=== PATIENT | female | born 1940 | race Caucasian/White ===

== ENCOUNTER 2017-10-11 19:03 | Inpatient (IN) ==
--- NOTE | 2017-10-11 19:14 | Emergency Department Note ---
Disposition Clinical Impression: Atypical pneumonia Disposition: Admitted As Inpatient Condition: Good Referrals: Evans More III, DO [Emergency Provider] - Time of Disposition: 21:12 General Adult HPI - General Stated complaint: sick weakness fever Time Seen by Provider: 10/11/17 19:14 Source: patient Mode of arrival: private vehicle Limitations: no limitations Nursing Notes Reviewed: Yes Vital Signs Reviewed: Yes - History of Present Illness HPI Narrative: 77-year-old white female presents emergency department via private vehicle accompanied with her son. She complains of cough and shortness of breath that is increased over the past 3 days. She was noted to have a fever last night with her cough and congestion. Her son relates that she had TheraFlu and this took care of the fever. Her fever was present again today and just prior to arrival he said it was 101. She has had a productive cough of yellow sputum. She has had pneumonia in the past, but not recently. She has had no other medicines prior to arrival. She says that she wears oxygen on occasion at home as needed. She has a history of COPD and has been using her oxygen at home today. - Related Data Home Medications Medication Instructions Recorded Confirmed Atenolol [Tenormin] 25 mg PO BID 12/22/14 10/11/17 Calcium Carbonate/Vitamin D3 1 each PO BID 12/22/14 10/11/17 [Calcium 600-Vit D3 800 Tablet] Cevimeline HCl [Evoxac] 30 mg PO TID 12/22/14 10/11/17 Losartan [Cozaar] 50 mg PO DAILY 12/22/14 10/11/17 NIFEdipine XL (24 HR) [Procardia 90 mg PO DAILY 12/22/14 10/11/17 XL] TraMADol [Ultram] 150 mg PO Q6HR PRN 12/22/14 10/11/17 predniSONE [Prednisone] 7.5 mg PO DAILY 12/22/14 10/11/17 Iron Ps Complex/B12/Folic Acid 1 each PO BID 06/30/16 10/11/17 [Iferex 150 Forte Capsule] Omeprazole [PriLOSEC] 20 mg PO DAILY 10/11/17 10/11/17 Allergies Allergy/AdvReac Type Severity Reaction Status Date / Time No Known Allergies Allergy Verified 06/30/16 16:44 All systems ED: reviewed and negative except as stated. Constitutional: Reports: as per HPI, fever Eyes: Denies: eye pain, eye discharge, vision change ENT ED: Reports: as per HPI Cardiovascular: Denies: chest pain, palpitations, dyspnea on exertion, edema, syncope Respiratory: Reports: as per HPI, cough, dyspnea, sputum production. Denies: wheezes Gastrointestinal: Denies: abdominal pain, nausea, vomiting, diarrhea, constipation, hematemesis, melena, hematochezia Genitourinary: Denies: dysuria, frequency, hematuria, discharge Musculoskeletal: Denies: back pain, neck pain, arthralgia, myalgia Integumentary: Denies: rash, abrasion, lesions Neurological: Denies: headache, weakness, numbness, paresthesias, confusion, abnormal gait, vertigo Psychiatric: Denies: anxiety, depression, suicidal thoughts, homicidal thoughts , auditory hallucinations, visual hallucinations Endocrine: Denies: fatigue Hematological/Lymphatic: Denies: easy bleeding, easy bruising Allergic/Immunologic: Denies: facial swelling, urticaria Past Medical History - Past Medical History Medical history: Reports: COPD, GERD, hypertension, osteoporosis, other Surgical history: Reports: hysterectomy Psychiatric history: Reports: no psych history [employer] history: Reports: non-contributory - Social History Smoking Status: Never smoker Smokeless Tobacco Status: No Alcohol use: Reports: none Drug use: Reports: none Physical Exam - General Limitations: no limitations General appearance: alert, in no apparent distress - Head Head exam: atraumatic, normocephalic, normal inspection - Eye Eye exam: Present: normal appearance, PERRL, EOMI - ENT ENT exam: normal exam, normal oropharynx, mucous membranes moist - Neck Neck exam: Present: normal inspection, full ROM, trachea midline. Absent: meningismus - Chest Chest inspection: Present: normal inspection, symmetric chest wall rise. Absent : tenderness - Respiratory Respiratory exam: Present: other (Breath sounds are decreased, but equal bilaterally. Diffuse rhonchi throughout). Absent: respiratory distress - Cardiovascular Cardiovascular exam: Present: regular rate, normal rhythm, normal heart sounds - Abdominal Exam Abdominal exam: Present: soft, Non-Tender. Absent: tenderness, distention, guarding, rebound, rigidity, organomegaly - Extremities Exam Extremities exam: Present: normal inspection, full ROM. Absent: tenderness, pedal edema - Back Exam Back exam: Present: normal inspection, full ROM. Absent: tenderness - Neurological Exam Neurological exam: Present: alert, oriented X3, CN II-XII intact. Absent: motor sensory deficit - Psychiatric Psychiatric exam: Present: normal affect, normal mood - Skin Skin exam: Present: warm, dry, intact, normal color Course Course Narrative: The patient remained stable throughout her emergency department stay without further complaint. Spoke with Dr. Negro at 2105 and the patient will be admitted to the hospital here in [place]. Vital Signs Temperature 100.3 F H 10/11/17 19:20 Pulse Rate 94 10/11/17 19:20 Respiratory Rate 18 10/11/17 19:20 Blood Pressure 123/63 10/11/17 19:20 O2 Sat by Pulse Oximetry 93 10/11/17 19:20 Temperature 100.3 F H 10/11/17 19:20 Pulse Rate 94 10/11/17 19:20 Respiratory Rate 18 10/11/17 19:20 Blood Pressure 123/63 10/11/17 19:20 O2 Sat by Pulse Oximetry 93 10/11/17 19:20 Oxygen Delivery Oxygen Delivery Nasal Cannula Medical Decision Making - Lab Data Lab results reviewed: Yes I reviewed the patient's lab results. Result diagrams: 10/11/17 20:25 10/11/17 20:25 Lab Results 10/11/17 10/11/17 10/11/17 Range/Units 20:25 20:25 20:25 WBC 14.7 H (4.3-11.1) K/mcL RBC 3.55 L (3.82-4.97) M/mcL Hgb 11.5 (11.5-15.4) g/dL Hct 35.2 L (35.3-44.9) % MCV 99.2 (83.0-100.0) fL MCH 32.4 (28.0-33.3) pg MCHC 32.7 (31.6-35.5) g/dL RDW 14.1 (11.5-14.5) % Plt Count 271 (140-400) K/mcL MPV 9.7 (9.4-12.4) fL Immature Gran % 0.3 (0-4) % Seg Neutrophils % 85.4 % Lymphocytes % 4.0 % Monocytes % 8.4 % Eosinophils % 1.6 % Basophils % 0.3 % Neutrophils # 12.6 H (1.6-8.9) K/mcL Lymphocytes # 0.6 (0.6-4.6) K/mcL Monocytes # 1.2 (0.0-1.3) K/mcL Eosinophils # 0.2 (0.0-0.6) K/mcL Basophils # 0.0 (0.0-0.2) K/mcL Sodium 129 L (136-145) mEq/L Potassium 4.3 (3.5-5.1) mEq/L Chloride 97 L (98-107) mEq/L Carbon Dioxide 23 (23-29) mEq/L BUN 32 H (8-23) mg/dL Creatinine 1.34 H (0.60-1.20) mg/dL Est GFR ( Amer) 46 L (> 60) Est GFR (Non-Af Amer) 38 L (> 60) BUN/Creatinine Ratio 24 (6-26) Glucose 102 (70-105) mg/dL Calculated Osmolality 275 L (280-300) Lactic Acid 0.7 (0.5-2.2) mmol/L Calcium 9.4 (8.6-10.3) mg/dL Total Bilirubin 0.7 (0.3-1.0) mg/dL AST 14 (13-39) Units/L ALT 10 (7-52) Units/L Alkaline Phosphatase 68 (34-104) Units/L Serum Total Protein 7.4 (6.4-8.9) g/dL Albumin 3.5 (3.5-5.7) g/dL Globulin 3.9 H (2.4-3.5) g/dL Albumin/Globulin Ratio 0.9 L (1.1-2.2) - Radiology Data Radiology results reviewed: Yes I reviewed the patient's radiology results. 2 views of the chest: IMPRESSION: Atypical pneumonia. D/ / Colt Johnson MD / Colt Johnson MD
[2017-10-11] MEDS ORDERED: methylPREDNISolone 125 MG/2 ML VIAL IVP ONE (19:23)
[2017-10-11] MEDS ORDERED: 0.9 % Sodium Chloride 500 ML IVC ONE (19:23)
[2017-10-11] MEDS ORDERED: Ipratropium/Albuterol Neb 3 ML IH ONE (19:23)
[2017-10-11] MEDS ORDERED: Azithromycin 500 MG in D5% in Water 250 ML IVPB ONE (20:00)
[2017-10-11 20:33] LABS: Basophils % 0.3 %; Eosinophils # 0.2 K/mcL (0.0-0.6); Eosinophils % 1.6 %; Hematocrit 35.2 % (35.3-44.9); Hemoglobin 11.5 g/dL (11.5-15.4); Immature Granulocytes % 0.3 % (0-4); Lymphocytes # 0.6 K/mcL (0.6-4.6); Mean Corpuscular HGB Conc 32.7 g/dL (31.6-35.5); Mean Corpuscular Hemoglobin 32.4 pg (28.0-33.3); Mean Corpuscular Volume 99.2 fL (83.0-100.0); Mean Platelet Volume 9.7 fL (9.4-12.4); Monocytes # 1.2 K/mcL (0.0-1.3); Monocytes % 8.4 %; Neutrophils # 12.6 K/mcL (1.6-8.9); Platelet Count 271 K/mcL (140-400); Red Blood Count 3.55 M/mcL (3.82-4.97); Red Cell Distribution Width 14.1 % (11.5-14.5); Segmented Neutrophils % 85.4 %
[2017-10-11] MEDS ORDERED: cefTRIAXone 1,000 MG in Water for inj. (sterile) 20 ML 10 ML IVP ONE (20:37)
[2017-10-11 20:47] LABS: Albumin 3.5 g/dL (3.5-5.7); Albumin/Globulin Ratio 0.9 (1.1-2.2); Bilirubin,Total 0.7 mg/dL (0.3-1.0); Calcium 9.4 mg/dL (8.6-10.3); Globulin 3.9 g/dL (2.4-3.5); Potassium 4.3 mEq/L (3.5-5.1); Total Protein 7.4 g/dL (6.4-8.9)
[2017-10-11] MEDS ORDERED: Naloxone 0.4 MG/ML INJ IVP PRN (22:20)
[2017-10-11] MEDS: 0.9 % Sodium Chloride 1,000 ML IVC SCH (23:04)
[2017-10-12] MEDS: Ipratropium/Albuterol Neb 3 ML IH PRN (00:36)
[2017-10-12 05:55] LABS: Basophils % 0.2 %; Hematocrit 37.3 % (35.3-44.9); Immature Granulocytes % 0.4 % (0-4); Lymphocytes # 0.3 K/mcL (0.6-4.6); Lymphocytes % 2.6 %; Mean Corpuscular HGB Conc 32.2 g/dL (31.6-35.5); Mean Corpuscular Hemoglobin 32.2 pg (28.0-33.3); Mean Platelet Volume 10.1 fL (9.4-12.4); Monocytes # 0.2 K/mcL (0.0-1.3); Monocytes % 2.1 %; Neutrophils # 10.7 K/mcL (1.6-8.9); Platelet Count 247 K/mcL (140-400); Red Blood Count 3.73 M/mcL (3.82-4.97); Red Cell Distribution Width 14.1 % (11.5-14.5); Segmented Neutrophils % 94.7 %
[2017-10-12 06:10] LABS: Albumin 3.4 g/dL (3.5-5.7); Albumin/Globulin Ratio 0.9 (1.1-2.2); Bilirubin,Total 0.3 mg/dL (0.3-1.0); Calcium 8.9 mg/dL (8.6-10.3); Potassium 4.4 mEq/L (3.5-5.1); Total Protein 7.4 g/dL (6.4-8.9)
[2017-10-12] MEDS: (Cevimeline Hcl [Evoxac] 30 MG) PO SCH ×3 (08:45→20:23)
[2017-10-12] MEDS: amLODIPine 5 MG TABLET PO SCH (08:48)
[2017-10-12] MEDS: Azithromycin 500 MG in D5% in Water 250 ML IVPB SCH (08:49)
[2017-10-12] MEDS: Metoprolol 100 MG TABLET PO SCH (08:49)
[2017-10-12] MEDS: cefTRIAXone 1,000 MG in Water for inj. (sterile) 20 ML 10 ML IVP SCH (08:50)
[2017-10-12] MEDS: traMADol 50 MG TABLET PO PRN ×2 (08:56→20:24)
[2017-10-12] MEDS ORDERED: NIFEdipine XL (24 HR) 30 MG TAB.ER.24 PO SCH (09:00)
[2017-10-12] MEDS ORDERED: cefTRIAXone 1,000 MG in Water for inj. (sterile) 20 ML 10 ML IVP SCH (09:00)
[2017-10-12] MEDS ORDERED: predniSONE 5 MG TABLET PO SCH (09:00)
--- NOTE | 2017-10-12 11:02 | Internal Med History&Physical ---
Date of Encounter: 10/12/17 Time of Encounter: 11:00 Assessment and Plan (1) Atypical pneumonia Current visit: Yes Status: Acute Continue azithromycin IV and steroids. Continue inhaled meds and oxygen therapy as needed. White blood cell count improved at 11.3 today. Will repeat labs in the morning. (2) COPD (chronic obstructive pulmonary disease) Current visit: Yes Status: Acute Continue inhaled meds and steroids as ordered. Will monitor. Continue oxygen per nasal cannula to remain sats greater than 92%. Qualifiers: COPD type: unspecified COPD Qualified Code(s): J44.9 - Chronic obstructive pulmonary disease, unspecified (3) Essential hypertension Current visit: Yes Status: Acute Controlled with current medication. Monitor blood pressure. Internal Medicine - H&P: HPI Admitted From: Emergency Dept Plans for Post Hospital Care: Home History of present illness: Ms. Miranda is a 77 year old female admitted to inpatient unit for atypical pneumonia. Presented to the emergency room yesterday with a 3 day history of cough and fever. Has history of pneumonia in the past. Past medical history includes COPD, Gerd, hypertension, osteoporosis. And [id number]. Where is oxygen per nasal cannula occasionally at home at 3 L. Currently complaining of cough and shortness of breath. Denies fever, chills, nausea, vomiting or diarrhea. Denies chest pain. Maintaining O2 sats at 95% with 3 L per nasal cannula. Maintaining appetite and hydration. Bowels moving as normal. Past Med Surg Social Fam HX - Past Medical History Medical history: arthritis, COPD, GERD, hypertension, osteoporosis, other Additional medical history: Sjogren's Syndrome Psychiatric history: no psych history - Past Surgical History Surgical History: hysterectomy - Social History Smoking Status: Never smoker Smokeless Tobacco Status: No Alcohol use: none Drug use: none - Family History Mother Family Member Ethnicity: Non- Living Status: Hx Family Cardiac Disorders: No Hx Family Respiratory Disorders: No Hx Family Cancer: No Hx Family GI Disorders: Yes Hx Family Endocrine Disorder: No Hx Family Neuromuscular Disorders: No Hx Family Neurologic Disorders: No Hx Family HEENT Disorders: No Hx Family Autoimmune Disorders: No Internal Medicine - H&P: Meds Calcium Carbonate/Vitamin D3 [Calcium 600-Vit D3 800 Tablet] 1 each PO BID 12/22 [History] Cevimeline HCl [Evoxac] 30 mg PO TID 12/22/14 [History] Losartan [Cozaar] 50 mg PO DAILY 12/22/14 [History] TraMADol [Ultram] 100 mg PO Q6HR PRN 12/22/14 [History] predniSONE [Prednisone] 7.5 mg PO DAILY 12/22/14 [History] Iron Ps Complex/B12/Folic Acid [Iferex 150 Forte Capsule] 1 each PO BID [History] Metoprolol [Lopressor] 100 mg PO DAILY 10/11/17 [History] Buspirone HCl [Buspar] 7.5 mg PO BID 10/12/17 [History] Ranitidine HCl [Zantac] 300 mg PO DAILY 10/12/17 [History] amLODIPine [Norvasc] 10 mg PO DAILY 10/12/17 [History] 3 Allergy/AdvReac Type Severity Reaction Status Date / Time No Known Allergies Allergy Verified 06/30/16 16:44 All Systems PM: A 10-system review of systems was performed and is negative for pertinent findings except as documented above in the HPI. - Constitutional Constitutional: no chills, no fever(s), no night sweats - EENT Eyes: no change in vision, no discharge, no pain, no photophobia Ears: no ear discharge, no ear pain, no tinnitus Nose, mouth and throat: no dysphagia, no nasal discharge, no neck pain, no sore throat - Cardiovascular Cardiovascular ROS IM: no chest pain, no diaphoresis, no dyspnea, no lightheadedness, no palpitations, no syncope - Respiratory Respiratory: cough, chest congestion, no dyspnea, no wheezing, no excessive phlegm production - Gastrointestinal Gastrointestinal: no abdominal pain, no diarrhea, no hematemesis, no hematochezia, no melena, no nausea, no vomiting - Genitourinary Genitourinary: no change in urinary stream, no dysuria, no flank pain, no hematuria - Musculoskeletal Musculoskeletal ROS IM: no numbness, no tingling - Integumentary Integumentary IM: no rash, no unusual bruising - Neurological Neurological ROS: no confusion, no convulsions, no focal weakness, no numbness, no tingling, no tremor(s) - Hematologic/Lymphatic Hematologic/Lymphatic: no easy bruising - Constitutional Vitals: Temp Pulse Resp BP Pulse Ox 97.5 F L 69 16 110/64 94 10/12/17 07:16 10/12/17 07:16 10/12/17 07:16 10/12/17 07:16 10/12/17 07:16 General appearance: Present: cooperative, A&O X 3, pleasant, no acute distress, answers questions appropriately - Head Head exam: Present: atraumatic, normocephalic - Eye Eye exam: Present: PERRL, conjuntiva pink, sclera anicteric Pupils: Present: PERRL - Neck Neck exam general surgery: Present: supple, trachea midline. Absent: lymphadenopathy - Respiratory Respiratory exam: Present: rales, rhonchi. Absent: accessory muscle use, wheezes Additional comments: Rhonchi and rales scattered throughout. - Cardiovascular Cardiovascular exam: Present: RRR, +S1, +S2. Absent: diastolic murmur, gallop, rubs, systolic murmur - GI/Abdominal GI/Abdominal exam: Present: normal bowel sounds, soft, no peritoneal signs. Absent: distended, tenderness - Extremities Exam Extremities exam: Present: warm, radial pulses palpable and symmetrical. Absent : calf tenderness, cyanotic, pedal edema - Neurological Exam Neurological exam: Present: CN II-XII intact, oriented X3, no focal deficits. Absent: pronater drift, facial droop, speech deficit - Skin Skin exam: Present: dry, intact Internal Med - H&P Results - Labs CBC & Chem 7: 10/12/17 05:15 10/12/17 05:15 Labs: Short CBC 10/12/17 Range/Units 05:15 WBC 11.3 H (4.3-11.1) K/mcL Hgb 12.0 (11.5-15.4) g/dL Hct 37.3 (35.3-44.9) % Plt Count 247 (140-400) K/mcL Neutrophils # 10.7 H (1.6-8.9) K/mcL BMP 10/12/17 05:15 Sodium 132 L Potassium 4.4 Chloride 100 Carbon Dioxide 25 BUN 28 H Creatinine 1.10 Glucose 187 H Calcium 8.9 Liver Function 10/12/17 Range/Units 05:15 Total Bilirubin 0.3 (0.3-1.0) mg/dL AST 14 (13-39) Units/L ALT 10 (7-52) Units/L Alkaline Phosphatase 71 (34-104) Units/L Albumin 3.4 L (3.5-5.7) g/dL
[2017-10-12] MEDS: *HR* Heparin 5,000 UNIT/ML VIAL SQ SCH ×2 (11:55→18:11)
[2017-10-12] MEDS: 0.9 % Sodium Chloride 1,000 ML IVC SCH (14:10)
[2017-10-12] MEDS: methylPREDNISolone 125 MG/2 ML VIAL IVP SCH ×2 (15:29→23:17)
[2017-10-12] MEDS: Ipratropium/Albuterol Neb 3 ML IH SCH ×2 (18:11→21:56)
[2017-10-13] MEDS: Ipratropium/Albuterol Neb 3 ML IH SCH ×4 (03:27→22:00)
[2017-10-13] MEDS: *HR* Heparin 5,000 UNIT/ML VIAL SQ SCH ×2 (05:50→18:07)
[2017-10-13 06:58] LABS: Basophils % 0.2 %; Hematocrit 36.7 % (35.3-44.9); Hemoglobin 12.2 g/dL (11.5-15.4); Immature Granulocytes % 0.6 % (0-4); Lymphocytes # 0.3 K/mcL (0.6-4.6); Lymphocytes % 1.5 %; Mean Corpuscular HGB Conc 33.2 g/dL (31.6-35.5); Mean Corpuscular Hemoglobin 32.3 pg (28.0-33.3); Mean Corpuscular Volume 97.1 fL (83.0-100.0); Mean Platelet Volume 9.7 fL (9.4-12.4); Monocytes # 1.5 K/mcL (0.0-1.3); Monocytes % 7.1 %; Neutrophils # 19.1 K/mcL (1.6-8.9); Platelet Count 368 K/mcL (140-400); Red Blood Count 3.78 M/mcL (3.82-4.97); Red Cell Distribution Width 14.1 % (11.5-14.5); Segmented Neutrophils % 90.6 %
[2017-10-13 07:17] LABS: Anisocytosis 1+ (Not Present); Platelet Estimate Normal (Normal); Poikilocytosis 1+ (Not Present)
[2017-10-13 07:19] LABS: BUN/Creatinine Ratio 22 (6-26); Blood Urea Nitrogen 17 mg/dL (8-23); Calcium 9.1 mg/dL (8.6-10.3); Carbon Dioxide 22 mEq/L (23-29); Chloride 102 mEq/L (98-107); Glucose 223 mg/dL (70-105); Osmolality,Calculated 286 (280-300); Potassium 3.2 mEq/L (3.5-5.1); Sodium 134 mEq/L (136-145); eGFR For Non-African Americans > 60 (> 60)
[2017-10-13] MEDS: amLODIPine 5 MG TABLET PO SCH (08:35)
[2017-10-13] MEDS: Metoprolol 100 MG TABLET PO SCH (08:36)
[2017-10-13] MEDS: cefTRIAXone 1,000 MG in Water for inj. (sterile) 20 ML 10 ML IVP SCH (08:36)
[2017-10-13] MEDS: methylPREDNISolone 125 MG/2 ML VIAL IVP SCH ×2 (08:37→17:26)
[2017-10-13] MEDS: Azithromycin 500 MG in D5% in Water 250 ML IVPB SCH (08:38)
[2017-10-13] MEDS: (Cevimeline Hcl [Evoxac] 30 MG) PO SCH ×3 (08:38→20:11)
[2017-10-13] MEDS: traMADol 50 MG TABLET PO PRN ×2 (08:43→21:59)
[2017-10-13 08:53] LABS: % Iron Saturation 12 % (15-50); Iron 28 mcg/dL (50-170); Transferrin 164 mg/dL (203-362)
--- NOTE | 2017-10-13 12:22 | Internal Med Progress Note ---
Date of Encounter: 10/13/17 Time of Encounter: 12:19 - Assessment and plan (1) Pneumonia Current Visit: Yes Status: Acute Assessment and plan: No acute issues. Continues treatment for her atypical pneumonia. Patient continues to show pulmonary congestion and states that she continues to have a productive cough with yellow-type thick sputum received. Patient currently is afebrile. Continues to have complaints of slight dyspnea during exertion, but does have a history of advanced COPD. We will continue with current antibiotics. Patient currently on cortical steroids. Today's WBC has elevated to 21, but this is also after patient has been started on cortical steroids. We will continue with current plan of care and monitor serial labs. Qualifiers: Pneumonia type: due to unspecified organism Laterality: right Lung location: middle lobe of lung Qualified Code(s): J18.1 - Lobar pneumonia, unspecified organism (2) Hypokalemia Current Visit: Yes Status: Acute Assessment and plan: Today's labs show a potassium low at 3.2. Patient was started on oral potassium 3 times a day. We will repeat labs in the morning to include a magnesium level evaluation. (3) Leukocytosis Current Visit: Yes Status: Acute Assessment and plan: Patient's WBC has elevated to 21, but this also coincides with her starting cortical steroids. Patient has been started on cortical steroids during her treatment of her atypical pneumonia and advanced COPD. We will continue to monitor serial labs. Patient does remain afebrile and appears relaxed with her respiratory effort while at rest. Qualifiers: Leukocytosis type: unspecified Qualified Code(s): D72.829 - Elevated white blood cell count, unspecified (4) Essential hypertension Current Visit: Yes Status: Acute Assessment and plan: Vital signs have been stable. We will continue with current medications. - Time Spent With Patient less than 15 minutes - Subjective Interval history: Patient appears relaxed and currently denies any discomforts or shortness of breath while at rest.. Patient did state she became winded ambulating earlier today. Patient states she continues to have a productive cough with her sputum appearing thick and yellow. Denies any fever or chills. - Constitutional Vitals: Temp Pulse Resp BP Pulse Ox 97.8 F 91 18 123/71 91 10/13/17 11:00 10/13/17 11:00 10/13/17 11:00 10/13/17 11:00 10/13/17 11:00 General appearance: Present: cooperative, A&O X 3, pleasant, no acute distress, answers questions appropriately - Head Head exam: Present: atraumatic, normocephalic - Eye Eye exam: Present: PERRL, conjuntiva pink, sclera anicteric Pupils: Present: PERRL - Neck Neck exam general surgery: Present: supple, trachea midline. Absent: lymphadenopathy - Respiratory Respiratory exam: Present: CTAB. Absent: accessory muscle use, rales, rhonchi, wheezes Additional comments: Patient noted to have a slight expiratory wheeze her to up her feels and fine basilar rales heard posteriorly. Respiratory effort appears relaxed. Patient states productive cough but no sputum has been observed. - Cardiovascular Cardiovascular exam: Present: RRR, +S1, +S2. Absent: diastolic murmur, gallop, rubs, systolic murmur - GI/Abdominal GI/Abdominal exam: Present: normal bowel sounds, soft, no peritoneal signs. Absent: distended, tenderness - Extremities Exam Extremities exam: Present: warm, radial pulses palpable and symmetrical. Absent : calf tenderness, cyanotic, pedal edema - Neurological Exam Neurological exam: Present: CN II-XII intact, oriented X3, no focal deficits. Absent: pronater drift, facial droop, speech deficit - Skin Skin exam: Present: dry, intact Internal Medicine: Result - Labs CBC & Chem 7: 10/13/17 06:55 10/13/17 06:55 Labs: Short CBC 10/13/17 Range/Units 06:55 WBC 21.1 H D (4.3-11.1) K/mcL Hgb 12.2 (11.5-15.4) g/dL Hct 36.7 (35.3-44.9) % Plt Count 368 (140-400) K/mcL Neutrophils # 19.1 H (1.6-8.9) K/mcL BMP 10/13/17 06:55 Sodium 134 L Potassium 3.2 L Chloride 102 Carbon Dioxide 22 L BUN 17 Creatinine 0.79 Glucose 223 H Calcium 9.1 Cardiac Enzymes 10/12/17 10/13/17 10/13/17 Range/Units 19:05 01:10 06:55 Troponin I < 0.03 < 0.03 < 0.03 (< 0.04) ng/mL - Impressions Impressions Echocardiogram 10/12/17 15:04 Impressions: LVEF 65%. Normal LV chamber size, wall thickness and function. Normal right ventricular structure and function. Mild aortic stenosis. Mild mitral regurgitation. Mild-moderate tricuspid regurgitation. At least mild pulmonary hypertension. Left Ventricular Wall Motion: Rest Echo Findings All wall segments showed normal motion. Findings: Study Quality * Technically sub-optimal due to poor echocardiographic windows. * Technical review due to No subcostal window ECG Findings * Sinus tachycardia. Left Ventricle * LVEF 65%. * Normal LV chamber size, wall thickness and function. * Normal left ventricular diastolic function. Right Ventricle * Normal right ventricular structure and function. Left Atrium * Normal left atrial size. Right Atrium * Normal right atrial size. Interatrial Septum * Interatrial septum not well evaluated. Aortic Valve * Moderately calcified aortic valve leaflets. * Mild aortic stenosis. * Peak and mean gradients are 20 12 mmHg, respectively. * V1 96, V2 223, LVOT 1.9 Mitral Valve * Mild mitral annular calcification * Mild mitral regurgitation. Tricuspid Valve * Mild-moderate tricuspid regurgitation. * Estimated RVSP is RV-RA gradient 34 mmHg. * At least mild pulmonary hypertension. Pulmonic Valve * Pulmonic valve is not well visualized. * No pulmonic regurgitation. Aorta * Normally sized aortic root. Pericardium * The pericardium appears normal. IVC * The IVC is not well evaluated. Consult Discharge Plan - Plan Referrals: Burt Vazquez, COAL GETTER [Primary Care Provider] -
[2017-10-14] MEDS: methylPREDNISolone 125 MG/2 ML VIAL IVP SCH ×4 (00:06→23:50)
[2017-10-14] MEDS: *HR* Heparin 5,000 UNIT/ML VIAL SQ SCH ×2 (03:56→18:01)
[2017-10-14] MEDS: Ipratropium/Albuterol Neb 3 ML IH SCH ×4 (03:56→22:03)
[2017-10-14 06:57] LABS: Basophils % 0.1 %; Hemoglobin 11.1 g/dL (11.5-15.4); Lymphocytes # 0.4 K/mcL (0.6-4.6); Lymphocytes % 1.7 %; Mean Corpuscular HGB Conc 32.6 g/dL (31.6-35.5); Mean Corpuscular Hemoglobin 32.1 pg (28.0-33.3); Mean Corpuscular Volume 98.3 fL (83.0-100.0); Monocytes # 1.4 K/mcL (0.0-1.3); Monocytes % 6.9 %; Neutrophils # 18.3 K/mcL (1.6-8.9); Platelet Count 318 K/mcL (140-400); Red Blood Count 3.46 M/mcL (3.82-4.97); Red Cell Distribution Width 14.4 % (11.5-14.5); Segmented Neutrophils % 90.3 %
[2017-10-14 09:07] LABS: BUN/Creatinine Ratio 28 (6-26); Blood Urea Nitrogen 21 mg/dL (8-23); Carbon Dioxide 25 mEq/L (23-29); Chloride 104 mEq/L (98-107); Glucose 165 mg/dL (70-105); Osmolality,Calculated 287 (280-300); Potassium 4.1 mEq/L (3.5-5.1); Sodium 135 mEq/L (136-145); eGFR For Non-African Americans > 60 (> 60)
[2017-10-14 09:08] LABS: Alanine Aminotransferase 16 Units/L (7-52); Albumin 3.2 g/dL (3.5-5.7); Albumin/Globulin Ratio 0.8 (1.1-2.2); Alkaline Phosphatase 71 Units/L (34-104); Aspartate Amino Transferase 22 Units/L (13-39); Bilirubin,Total 0.3 mg/dL (0.3-1.0); Calcium 8.9 mg/dL (8.6-10.3); Globulin 3.9 g/dL (2.4-3.5); Total Protein 7.1 g/dL (6.4-8.9)
[2017-10-14] MEDS ORDERED: *HR* LORazepam 2 MG/ML VIAL IVP ONE (09:52)
[2017-10-14] MEDS: cefTRIAXone 1,000 MG in Water for inj. (sterile) 20 ML 10 ML IVP SCH (10:14)
[2017-10-14] MEDS: Azithromycin 500 MG in D5% in Water 250 ML IVPB SCH (10:15)
[2017-10-14] MEDS: amLODIPine 5 MG TABLET PO SCH (10:15)
[2017-10-14] MEDS: Metoprolol 100 MG TABLET PO SCH (10:15)
[2017-10-14] MEDS: (Cevimeline Hcl [Evoxac] 30 MG) PO SCH ×3 (10:16→20:01)
[2017-10-14] MEDS: traMADol 50 MG TABLET PO PRN ×2 (11:05→22:03)
[2017-10-14 12:11] LABS: ABG Base Excess -2 mEq/L (-2 to 3); ABG HCO3 23 mEq/L (21-27); ABG Oxygen Saturation 92 % (95-98); ABG PCO2 37 mmHg (35-45); ABG PH 7.39 pH Units (7.32-7.45); ABG PO2 65 mmHg (85-104); ABG TCO2 24 mEq/L (20-26)
--- NOTE | 2017-10-14 15:12 | Internal Med Progress Note ---
Date of Encounter: 10/14/17 Time of Encounter: 15:10 - Assessment and plan (1) COPD (chronic obstructive pulmonary disease) Current Visit: Yes Status: Acute Assessment and plan: She is doing better with her respiratory status. ABGs are normal or nearly so. Will continue to follow and think that she has a significant anxiety overlay. Qualifiers: COPD type: unspecified COPD Qualified Code(s): J44.9 - Chronic obstructive pulmonary disease, unspecified (2) Generalized anxiety disorder Current Visit: Yes Status: Acute Assessment and plan: She responded to a small dose of IV Ativan. She asks for more or less this afternoon. I told her that this might cause respiratory failure and it is addictive and therefore something that we should avoid. Will increase her Effexor and follow. (3) Atypical pneumonia Current Visit: Yes Status: Acute Assessment and plan: We will continue antibiotics. Will also repeat chest x-ray as she has ongoing respiratory complaints. (4) Essential hypertension Current Visit: Yes Status: Acute Assessment and plan: Clinically stable. We will continue home regimen and follow. (5) Leukocytosis Current Visit: Yes Status: Acute Assessment and plan: Presumed reactive to steroids. Will follow. Qualifiers: Leukocytosis type: unspecified Qualified Code(s): D72.829 - Elevated white blood cell count, unspecified - Subjective Interval history: Patient with breathing problem. Notified by nursing that she was in respiratory distress. She also had a markedly elevated heart rate at that point which was sinus rhythm. She had no ST or T-wave changes. She had tightness in her chest with the episode of tachycardia and dyspnea. She states that she is now 100% better than before. She denies cough and states that she still has "a small amount of the heebie-jeebees." She has moved her bowels and has no bladder problems or other problems. Patient has no complaint of chest discomfort, dyspnea, orthopnea, palpitations, nausea or vomiting, constipation or diarrhea, other changes in bowel habits, difficulty with urination, rash or itching, or other new complaints, except as mentioned above. Review of systems is otherwise negative. I discussed management of her care with nursing staff. - Constitutional Vitals: Temp Pulse Resp BP Pulse Ox 97.6 F 112 17 144/76 93 10/14/17 11:23 10/14/17 11:23 10/14/17 11:23 10/14/17 11:23 10/14/17 11:23 General appearance: Present: cooperative, pleasant, answers questions appropriately Exam: Examination: (Except as mentioned above): General: In no apparent distress. Alert and oriented 3. Nondiaphoretic. Head: Atraumatic and normocephalic. Respiratory: No use of accessory muscles. Lungs have few or rhonchi but has rales, diffusely. Normal airflow. Cardiovascular: Regular rate and rhythm without murmur appreciated. Abdomen: Bowel sounds are normal. No hepatosplenomegaly mass or tenderness appreciated. Obese and therefore difficult to palpate deeply. Extremities: No cyanosis clubbing or edema. Skin: Warm and non-diaphoretic with no new lesions noted. Internal Medicine: Result - Labs CBC & Chem 7: 10/14/17 06:31 10/14/17 06:31 Labs: Short CBC 10/14/17 Range/Units 06:31 WBC 20.3 H (4.3-11.1) K/mcL Hgb 11.1 L (11.5-15.4) g/dL Hct 34.0 L (35.3-44.9) % Plt Count 318 (140-400) K/mcL Neutrophils # 18.3 H (1.6-8.9) K/mcL BMP 10/14/17 06:31 Sodium 135 L Potassium 4.1 D Chloride 104 Carbon Dioxide 25 BUN 21 Creatinine 0.74 Glucose 165 H Calcium 8.9 Liver Function 10/14/17 Range/Units 06:31 Total Bilirubin 0.3 (0.3-1.0) mg/dL AST 22 (13-39) Units/L ALT 16 (7-52) Units/L Alkaline Phosphatase 71 (34-104) Units/L Albumin 3.2 L (3.5-5.7) g/dL - ABG Interpretation ABG results: ABG ABG pH 7.39 pH Units (7.32-7.45) 10/14/17 12:05 ABG pCO2 37 mmHg (35-45) 10/14/17 12:05 ABG pO2 65 mmHg (85-104) L 10/14/17 12:05 ABG O2 Saturation 92 % (95-98) L 10/14/17 12:05 Consult Discharge Plan - Plan Referrals: Burt Vazquez, SPORTS CLERK [Primary Care Provider] -
[2017-10-15] MEDS: Ipratropium/Albuterol Neb 3 ML IH SCH ×4 (04:12→21:41)
[2017-10-15] MEDS: *HR* Heparin 5,000 UNIT/ML VIAL SQ SCH ×2 (04:37→18:56)
[2017-10-15] MEDS: Ipratropium/Albuterol Neb 3 ML IH PRN (04:37)
[2017-10-15] MEDS ORDERED: Permethrin Cream Rinse 60 ML LIQUID TP ONE ×2 (07:08→15:00)
[2017-10-15] MEDS ORDERED: *HR* LORazepam 2 MG/ML VIAL IVP ONE (08:48)
[2017-10-15] MEDS: amLODIPine 5 MG TABLET PO SCH (10:01)
[2017-10-15] MEDS: Metoprolol 100 MG TABLET PO SCH (10:01)
[2017-10-15] MEDS: cefTRIAXone 1,000 MG in Water for inj. (sterile) 20 ML 10 ML IVP SCH (10:03)
[2017-10-15] MEDS: methylPREDNISolone 125 MG/2 ML VIAL IVP SCH ×2 (10:03→16:24)
[2017-10-15] MEDS: Azithromycin 500 MG in D5% in Water 250 ML IVPB SCH (10:03)
[2017-10-15] MEDS: traMADol 50 MG TABLET PO PRN ×2 (10:06→21:38)
[2017-10-15] MEDS: (Cevimeline Hcl [Evoxac] 30 MG) PO SCH ×3 (11:12→21:42)
[2017-10-15] MEDS: Albuterol 2.5 MG/3 ML NEBULIZER IH PRN (12:45)
--- NOTE | 2017-10-15 13:16 | Electrocardiograph Report ---
[place] [id number] Test Date: 2017-10-12 Pat Name: Natasha Miranda Department: 2001 Room: 111 Gender: F Aemt: 3bblb : 1940 Requested By: Louie Negro Order Number: [id number] Reading MD: Evans Singh Measurements Intervals [place] Rate: 121 P: 61 [place]: 153 QRS: 25 QRSD: 92 T: 32 QT: 289 QTc: 361 Interpretive Statements SINUS TACHYCARDIA ABNORMAL RHYTHM ECG Electronically Signed On 10-15-2017 13:15:01 EDT by Evans Singh
--- NOTE | 2017-10-15 13:16 | Electrocardiograph Report ---
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
[2017-10-15] MEDS ORDERED: Furosemide 40 MG/4 ML VIAL IVP ONE (15:00)
--- NOTE | 2017-10-15 15:32 | Internal Med Progress Note ---
Date of Encounter: 10/15/17 Time of Encounter: 15:28 - Assessment and plan (1) COPD (chronic obstructive pulmonary disease) Current Visit: Yes Status: Acute Assessment and plan: I still believe that her respiratory status is improving, however slowly. She may have a complement of heart failure and we will recheck a BMP. We will also give her a dose of IV Lasix, to see if this helps. We will treat anxiety as noted.. Qualifiers: COPD type: unspecified COPD Qualified Code(s): J44.9 - Chronic obstructive pulmonary disease, unspecified (2) Generalized anxiety disorder Current Visit: Yes Status: Acute Assessment and plan: As noted, she will be treated with Remeron and follow. We hope to discharge her in a day or 2. (3) Atypical pneumonia Current Visit: Yes Status: Acute Assessment and plan: We will continue antibiotics. Repeat chest x-ray was unremarkable in terms of the pneumonia. (4) Essential hypertension Current Visit: Yes Status: Acute Assessment and plan: Clinically stable. We will continue home regimen and follow. (5) Leukocytosis Current Visit: Yes Status: Acute Assessment and plan: Presumed reactive to steroids. Will follow. Qualifiers: Leukocytosis type: unspecified Qualified Code(s): D72.829 - Elevated white blood cell count, unspecified - Subjective Interval history: The patient had dyspnea again this morning which seemed to be anxiety, to a [place] [facility] was experienced with her. She had a rapid heart rate up to 140s and even 160. However, this responded to 0.5 mg of IV Ativan. She slowly decreased her heart rate and her respiratory symptoms improved with the Ativan. She states that in general, her breathing is better. She knows after she has responded to anxiety medicine that she "works herself up." She noted yesterday afternoon that she has yeast and itching under her breasts and upper abdomen. We also found that she had this in the intertrigo areas. Nursing notes that she is interested with lice and plan treatment per policy and available medication. I discussed possible anxiolytic with pharmacy and Remeron at bedtime was decided upon. She moved her bowels last night and she is pleased with this. Patient has no complaint of chest discomfort, dyspnea, orthopnea, palpitations, nausea or vomiting, constipation or diarrhea, other changes in bowel habits, difficulty with urination, rash or itching, or other new complaints, except as mentioned above. Review of systems is otherwise negative. I discussed management of her care with nursing staff. - Constitutional Vitals: Temp Pulse Resp BP Pulse Ox 98.4 F 126 19 145/75 90 10/15/17 08:46 10/15/17 08:46 10/15/17 08:46 10/15/17 08:46 10/15/17 08:46 General appearance: Present: cooperative, pleasant, answers questions appropriately Exam: Examination: (Except as mentioned above): General: In no apparent distress. Alert and oriented 3. Nondiaphoretic. Head: Atraumatic and normocephalic. Respiratory: No use of accessory muscles. Lungs have better airflow with rales , diffusely, especially at the bases bilaterally. Cardiovascular: Regular rate and rhythm without murmur appreciated. Abdomen: Bowel sounds are normal. No hepatosplenomegaly mass or tenderness appreciated. Obese and therefore difficult to palpate deeply. Extremities: No cyanosis clubbing or edema. Skin: Warm and non-diaphoretic with inframammary and inguinal intertrigo, bilaterally. Internal Medicine: Result - Labs CBC & Chem 7: 10/14/17 06:31 10/14/17 06:31 - ABG Interpretation ABG results: ABG ABG pH 7.39 pH Units (7.32-7.45) 10/14/17 12:05 ABG pCO2 37 mmHg (35-45) 10/14/17 12:05 ABG pO2 65 mmHg (85-104) L 10/14/17 12:05 ABG O2 Saturation 92 % (95-98) L 10/14/17 12:05 - Impressions Impressions Chest X-Ray 10/14/17 15:41 IMPRESSION: Increased opacity in the left lung base suspected to be due to pneumonia. Slight pulmonary vascular congestion. Mild scarring or chronic atelectasis in the lower right lung. Suspected progression of 1 of the lower thoracic vertebral fractures. Small to moderate hiatal hernia. D/ / Lloyd Kelly MD / Lloyd Kelly MD Interpreting Provider: Lloyd Kelly MD Consult Discharge Plan - Plan Referrals: Burt Vazquez, FIREMAN HELPER [Primary Care Provider] -
--- NOTE | 2017-10-15 16:08 | Electrocardiograph Report ---
[place] [address] Test Date: 2017-10-14 Pat Name: Natasha Miranda Department: 2001 Room: 111 Gender: F Data Reporting Analyst: : 1940 Requested By: Louie Negro Order Number: [id number] Reading MD: Mercy Daniels Measurements Intervals [place] Rate: 155 P: 62 SC: 122 QRS: 11 QRSD: 89 T: 28 QT: 253 QTc: 340 Interpretive Statements SINUS TACHYCARDIA, POSSIBLE ATRIAL FLUTTER NONSPECIFIC ST & T-WAVE ABNORMALITY Electronically Signed On 10-15-2017 16:06:40 EDT by Mercy Daniels
[2017-10-15] MEDS: Nystatin POWDER 30 GM BOTTLE TP SCH ×2 (16:29→21:42)
[2017-10-15] MEDS: Fluconazole 100 MG TABLET PO SCH (16:29)
[2017-10-15] MEDS: Mirtazapine 15 MG TABLET PO SCH (21:39)
[2017-10-16] MEDS: methylPREDNISolone 125 MG/2 ML VIAL IVP SCH ×3 (00:24→16:49)
[2017-10-16] MEDS: Ipratropium/Albuterol Neb 3 ML IH SCH ×4 (06:18→22:24)
[2017-10-16] MEDS: *HR* Heparin 5,000 UNIT/ML VIAL SQ SCH ×2 (06:25→17:49)
[2017-10-16] MEDS: Metoprolol 100 MG TABLET PO SCH (09:19)
[2017-10-16] MEDS: amLODIPine 5 MG TABLET PO SCH (09:19)
[2017-10-16] MEDS: Fluconazole 100 MG TABLET PO SCH (09:19)
[2017-10-16] MEDS: Azithromycin 500 MG in D5% in Water 250 ML IVPB SCH (09:21)
[2017-10-16] MEDS: cefTRIAXone 1,000 MG in Water for inj. (sterile) 20 ML 10 ML IVP SCH (09:23)
[2017-10-16] MEDS: Nystatin POWDER 30 GM BOTTLE TP SCH ×3 (09:41→20:15)
[2017-10-16] MEDS: (Cevimeline Hcl [Evoxac] 30 MG) PO SCH ×3 (09:44→20:14)
[2017-10-16] MEDS: traMADol 50 MG TABLET PO PRN ×2 (09:48→23:12)
[2017-10-16] MEDS: Benzonatate 100 MG CAPSULE PO PRN ×2 (09:48→15:16)
--- NOTE | 2017-10-16 10:20 | Internal Med Progress Note ---
Date of Encounter: 10/16/17 Time of Encounter: 10:18 - Assessment and plan (1) Atypical pneumonia Current Visit: Yes Status: Acute Assessment and plan: Continue IV antibiotics and steroids. (2) COPD (chronic obstructive pulmonary disease) Current Visit: Yes Status: Acute Assessment and plan: Continue steroids, inhaled meds and oxygen per nasal cannula. Maintaining sats. Qualifiers: COPD type: unspecified COPD Qualified Code(s): J44.9 - Chronic obstructive pulmonary disease, unspecified (3) Essential hypertension Current Visit: Yes Status: Acute Assessment and plan: Controlled with current medication. Monitor blood pressure. (4) Lice Current Visit: Yes Status: Acute Assessment and plan: Receive treatment yesterday. Will repeat in 7 days. Monitor. - Time Spent With Patient less than 15 minutes - Subjective Interval history: Continues to report cough with yellow phlegm. States breathing easier. Was treated for lice yesterday. Denies fever, chills, nausea, vomiting or diarrhea. Bowels moving as normal. Maintaining appetite and hydration. - Constitutional Vitals: Temp Pulse Resp BP Pulse Ox 97.4 F L 117 16 149/88 90 10/16/17 07:00 10/16/17 07:00 10/16/17 07:00 10/16/17 07:00 10/16/17 07:00 General appearance: Present: cooperative, pleasant, answers questions appropriately - Head Head exam: Present: atraumatic, normocephalic - Eye Eye exam: Present: PERRL, conjuntiva pink, sclera anicteric Pupils: Present: PERRL - Neck Neck exam general surgery: Present: supple, trachea midline. Absent: lymphadenopathy - Respiratory Respiratory exam: Present: CTAB. Absent: accessory muscle use, rales, rhonchi, wheezes Additional comments: Slight expiratory wheeze right upper lobe. - Cardiovascular Cardiovascular exam: Present: RRR, +S1, +S2. Absent: diastolic murmur, gallop, rubs, systolic murmur - GI/Abdominal GI/Abdominal exam: Present: normal bowel sounds, soft, no peritoneal signs. Absent: distended, tenderness - Extremities Exam Extremities exam: Present: warm, radial pulses palpable and symmetrical. Absent : calf tenderness, cyanotic, pedal edema - Neurological Exam Neurological exam: Present: CN II-XII intact, oriented X3, no focal deficits. Absent: pronater drift, facial droop, speech deficit - Skin Skin exam: Present: dry, intact Internal Medicine: Result - Labs CBC & Chem 7: 10/14/17 06:31 10/14/17 06:31 - ABG Interpretation ABG results: ABG ABG pH 7.39 pH Units (7.32-7.45) 10/14/17 12:05 ABG pCO2 37 mmHg (35-45) 10/14/17 12:05 ABG pO2 65 mmHg (85-104) L 10/14/17 12:05 ABG O2 Saturation 92 % (95-98) L 10/14/17 12:05 Consult Discharge Plan - Plan Referrals: Burt Vazquez, CLAY ROASTER [Primary Care Provider] -
--- NOTE | 2017-10-16 11:11 | Electrocardiograph Report ---
[address] [address] Test Date: 2017-10-14 Pat Name: Natasha Miranda Department: 2001 Room: 111 Gender: Interstate Bus Dispatcher: : 1940 Requested By: Louie Negro Order Number: [id number] Reading MD: Vanna Sarah Measurements Intervals [place] Rate: 101 P: 27 KS: 130 QRS: 9 QRSD: 93 T: 19 QT: 329 QTc: 387 Interpretive Statements SINUS TACHYCARDIA ABNORMAL RHYTHM ECG Electronically Signed On 10-16-2017 11:10:01 EDT by Vanna Sarah
[2017-10-16] MEDS: Albuterol 2.5 MG/3 ML NEBULIZER IH PRN ×2 (15:17→20:23)
[2017-10-16] MEDS: Mirtazapine 15 MG TABLET PO SCH (20:14)
[2017-10-17] MEDS: methylPREDNISolone 125 MG/2 ML VIAL IVP SCH ×2 (00:31→08:00)
[2017-10-17] MEDS: Ipratropium/Albuterol Neb 3 ML IH SCH ×2 (03:49→10:17)
[2017-10-17] MEDS: *HR* Heparin 5,000 UNIT/ML VIAL SQ SCH (04:09)
[2017-10-17 06:19] LABS: Basophils % 0.7 %; Hematocrit 35.3 % (35.3-44.9); Hemoglobin 11.5 g/dL (11.5-15.4); Lymphocytes # 0.8 K/mcL (0.6-4.6); Lymphocytes % 3.6 %; Mean Corpuscular HGB Conc 32.6 g/dL (31.6-35.5); Mean Corpuscular Hemoglobin 31.7 pg (28.0-33.3); Mean Corpuscular Volume 97.2 fL (83.0-100.0); Monocytes # 0.8 K/mcL (0.0-1.3); Monocytes % 3.8 %; Platelet Count 349 K/mcL (140-400); Red Blood Count 3.63 M/mcL (3.82-4.97); Red Cell Distribution Width 14.2 % (11.5-14.5); Segmented Neutrophils % 83.9 %
[2017-10-17 06:26] LABS: Basophils # 0.2 K/mcL (0.0-0.2)
[2017-10-17 06:39] LABS: BUN/Creatinine Ratio 40 (6-26); Blood Urea Nitrogen 31 mg/dL (8-23); Calcium 8.6 mg/dL (8.6-10.3); Carbon Dioxide 26 mEq/L (23-29); Chloride 102 mEq/L (98-107); Glucose 174 mg/dL (70-105); Osmolality,Calculated 291 (280-300); Potassium 3.8 mEq/L (3.5-5.1); Sodium 135 mEq/L (136-145); eGFR For Non-African Americans > 60 (> 60)
[2017-10-17 06:43] LABS: Platelet Estimate Normal (Normal)
[2017-10-17 06:44] LABS: Reactive Lymphocytes Present (Not Present)
[2017-10-17] MEDS: Metoprolol 100 MG TABLET PO SCH (07:59)
[2017-10-17] MEDS: Azithromycin 500 MG in D5% in Water 250 ML IVPB SCH (08:00)
[2017-10-17] MEDS: Fluconazole 100 MG TABLET PO SCH (08:00)
[2017-10-17] MEDS: amLODIPine 5 MG TABLET PO SCH (08:00)
[2017-10-17] MEDS: (Cevimeline Hcl [Evoxac] 30 MG) PO SCH ×2 (09:57→15:15)
[2017-10-17] MEDS: Nystatin POWDER 30 GM BOTTLE TP SCH ×2 (09:57→15:15)
[2017-10-17] MEDS ORDERED: Azithromycin 250 MG TABLET PO SCH (10:00)
[2017-10-17] MEDS: cefTRIAXone 1,000 MG in Water for inj. (sterile) 20 ML 10 ML IVP SCH (10:00)
[2017-10-17] MEDS ORDERED: predniSONE 20 MG TABLET PO SCH (10:00)
[2017-10-17] MEDS: traMADol 50 MG TABLET PO PRN (10:45)
--- NOTE | 2017-10-17 11:45 | Discharge Summary ---
Date of Encounter: 10/17/17 Time of Encounter: 11:42 - Discharge Diagnosis (1) Atypical pneumonia Priority: Primary Status: Acute Comments: Continue prednisone and azithromycin. Follow up with PCP in one week. (2) COPD (chronic obstructive pulmonary disease) Priority: Secondary Status: Acute Comments: Continue inhaled breathing treatments. Continue oxygen as needed. Follow up with PCP. Qualifiers: COPD type: unspecified COPD Qualified Code(s): J44.9 - Chronic obstructive pulmonary disease, unspecified (3) Essential hypertension Priority: Secondary Status: Chronic Comments: Controlled. Continue current medication. (4) Lice Priority: Secondary Status: Acute Comments: Education provided for treatment at home. Hospital course: Ms. Miranda is a 77 year old female discharging to home with family after being admitted to inpatient medical for for pneumonia. Has been treated with ceftriaxone and azithromycin and Solu-Medrol IV. Improving and maintaining oxygen saturations. Will continue PO prednisone and antibiotics. Follow up with PCP within one week. Was also found to have lice and hair. Has had a topical treatment. Discharge discussed with: patient, nurse, social work - Time Spent with Patient Total time spent providing and/or coordinating discharge services: Less than 30 minutes - Discharge Medications Prescriptions: Azithromycin [Zithromax] 250 mg PO DAILY #4 tablet predniSONE [PredniSONE] 40 mg PO DAILY #8 tablet Home Medications: Calcium Carbonate/Vitamin D3 [Calcium 600-Vit D3 800 Tablet] 1 each PO BID 12/22 [History] Cevimeline HCl [Evoxac] 30 mg PO TID 12/22/14 [History] Losartan [Cozaar] 50 mg PO DAILY 12/22/14 [History] TraMADol [Ultram] 100 mg PO Q6HR PRN 12/22/14 [History] predniSONE [Prednisone] 7.5 mg PO DAILY 12/22/14 [History] Iron Ps Complex/B12/Folic Acid [Iferex 150 Forte Capsule] 1 each PO BID [History] Metoprolol [Lopressor] 100 mg PO DAILY 10/11/17 [History] Buspirone HCl [Buspar] 7.5 mg PO BID 10/12/17 [History] Ranitidine HCl [Zantac] 300 mg PO DAILY 10/12/17 [History] amLODIPine [Norvasc] 10 mg PO DAILY 10/12/17 [History] Albuterol Neb [Proventil Neb] 2.5 mg IH [id number] PRN inhsol 10/17/17 [Rx] Azithromycin [Zithromax] 250 mg PO DAILY #4 tablet 10/17/17 [Rx] Docusate [Colace] 100 mg PO BID capsule 10/17/17 [Rx] Ipratropium/Albuterol Neb [Duoneb] 3 ml IH [id number] inhsol 10/17/17 [Rx] predniSONE [PredniSONE] 40 mg PO DAILY #8 tablet 10/17/17 [Rx] Allergies/Adverse Reactions: 3 Allergy/AdvReac Type Severity Reaction Status Date / Time No Known Allergies Allergy Verified 06/30/16 16:44 Date of admission: 10/11/17 22:34 Primary care physician: Burt Vazquez CNP Discharging clinician: Louie Negro Anticipated date of discharge: 10/17/17 - Constitutional Vitals: Temp Pulse Resp BP Pulse Ox 98.3 F 128 17 161/80 94 10/17/17 07:30 10/17/17 07:30 10/17/17 07:30 10/17/17 07:30 10/17/17 07:30 General appearance: Present: cooperative, pleasant, answers questions appropriately - Head Head exam: Present: atraumatic, normocephalic - Eye Eye exam: Present: PERRL, conjuntiva pink, sclera anicteric Pupils: Present: PERRL - Neck Neck exam general surgery: Present: supple, trachea midline. Absent: lymphadenopathy - Respiratory Respiratory exam: Present: CTAB, rhonchi. Absent: accessory muscle use, rales, wheezes Additional comments: rhonchi bilat upper lobes. - Cardiovascular Cardiovascular exam: Present: RRR, +S1, +S2. Absent: diastolic murmur, gallop, rubs, systolic murmur - GI/Abdominal GI/Abdominal exam: Present: normal bowel sounds, soft, no peritoneal signs. Absent: distended, tenderness - Extremities Exam Extremities exam: Present: warm, radial pulses palpable and symmetrical. Absent : calf tenderness, cyanotic, pedal edema - Neurological Exam Neurological exam: Present: CN II-XII intact, oriented X3, no focal deficits. Absent: pronater drift, facial droop, speech deficit - Skin Skin exam: Present: dry, intact - Patient Status Disposition: Home, Self-Care Condition: Good Functional capacity at discharge: uses cane/walker Overall status at discharge: patient is progressing back to baseline - Ambulatory Orders Ambulatory Orders: ECG 12 lead ECG [ECG] Location: None Selected - Discharge Instructions Follow Up With: Burt Vazquez CDL B DRIVER [Primary Care Provider] - Forms: ED Satisfaction Letter - Diet and Activity Activity: increase activity as tolerated Diet: advance to your usual diet - Attending Attestation see discharge note.
[2017-10-17 13:39] VITALS: BP 139/74
== END 2017-10-17 15:45 | disposition home or self-care (01) | DRG 194 ==
LOC: INPGRE 19:03 → EMEROOGRE 19:03 → INPGRE 22:08

== ENCOUNTER 2018-02-22 15:51 | Inpatient (IN) ==
[2018-02-22] MEDS ORDERED: Ipratropium/Albuterol Neb 3 ML IH ONE ×3 (16:22→18:11)
--- NOTE | 2018-02-22 16:33 | Emergency Department Note ---
Disposition Clinical Impression: COPD (chronic obstructive pulmonary disease) Disposition: Admitted As Inpatient Condition: Fair Time of Disposition: 18:00 General Adult HPI - General Chief complaint: ED Upper Respiratory Infection Stated complaint: oxygen is low Time Seen by Provider: 02/22/18 16:15 Source: patient Limitations: no limitations Nursing Notes Reviewed: Yes Vital Signs Reviewed: Yes - History of Present Illness HPI Narrative: Ms. Miranda tells me she is had pneumonia off and on for the last 6 months. Her last treatment by mouth amoxicillin was as an outpatient just a couple weeks ago. She felt better for about 3 days after that but the last couple of days she has had an increased productive cough for green sputum is no more short of breath than usual but much more fatigued and has some upper body discomfort especially when she coughs. She was on Cipro for a urinary tract infection and seemed to have some mental status changes just after [place]. In October she was here in the hospital at [facility] and received Zithromax and prednisone and got better through most of the fall. She is on 2.5 mg prednisone daily and has been for years. She does take her oxygen level at home and her son accompanies her to the emergency department and tells me he has been in the mid 80s and she called the family doctor who recommended she come in the emergency department. She has been eating and drinking fine no nausea vomiting or diarrhea. No fever no chills no urinary issues. She has been on 6 months of home oxygen secondary to COPD although she has never smoked. She has no history of asthma as a younger person. She tells me that her smoke quite a bit. She does take albuterol as needed at home. She has no heart history. She does tell me that her legs swell periodically in that today is no worse than usual. Her son tells me that they are much less swollen first thing in the morning. Pain Scale: 0 - Related Data Home Medications Medication Instructions Recorded Confirmed Calcium Carbonate/Vitamin D3 1 each PO BID 12/22/14 02/22/18 [Calcium 600-Vit D3 800 Tablet] Cevimeline HCl [Evoxac] 30 mg PO TID 12/22/14 02/22/18 Losartan [Cozaar] 50 mg PO DAILY 12/22/14 02/22/18 TraMADol [Ultram] 100 mg PO Q6HR PRN 12/22/14 02/22/18 Iron Ps Complex/B12/Folic Acid 1 each PO BID 06/30/16 02/22/18 [Iferex 150 Forte Capsule] Metoprolol [Lopressor] 100 mg PO DAILY 10/11/17 02/22/18 Buspirone HCl [Buspar] 7.5 mg PO BID 10/12/17 02/22/18 Ranitidine HCl [Zantac] 300 mg PO DAILY 10/12/17 02/22/18 amLODIPine [Norvasc] 10 mg PO DAILY 10/12/17 02/22/18 Previous Rx's Medication Instructions Recorded Albuterol Neb [Proventil Neb] 2.5 mg IH [id number] PRN inhsol 10/17/17 Docusate [Colace] 100 mg PO BID capsule 10/17/17 Ipratropium/Albuterol Neb [Duoneb] 3 ml IH [id number] inhsol 10/17/17 Allergies Allergy/AdvReac Type Severity Reaction Status Date / Time ciprofloxacin [From Cipro] Allergy Hallucinati Verified 02/22/18 16:04 ng Constitutional: Denies: fever, chills ENT ED: Denies: congestion Cardiovascular: Reports: dyspnea on exertion. Denies: chest pain Respiratory: Reports: cough, sputum production Gastrointestinal: Denies: nausea, vomiting, diarrhea Genitourinary: Denies: urgency, dysuria, frequency Musculoskeletal: Denies: myalgia Integumentary: Denies: rash Neurological: Denies: headache Endocrine: Reports: fatigue Hematological/Lymphatic: Denies: easy bleeding, easy bruising Past Medical History - Past Medical History Medical history: Reports: arthritis, COPD, GERD, hypertension, osteoporosis, other Surgical history: Reports: hysterectomy Psychiatric history: Reports: no psych history DIGITAL DEVELOPER history: Reports: non-contributory - Social History Smoking Status: Never smoker Smokeless Tobacco Status: No Alcohol use: Reports: none Drug use: Reports: none Physical Exam - General Limitations: no limitations General appearance: alert, in no apparent distress - Head Head exam: atraumatic, normocephalic - Eye Eye exam: Present: normal appearance - ENT ENT exam: mucous membranes moist - Neck Neck exam: Present: normal inspection - Chest Chest inspection: Present: symmetric chest wall rise, other (Kyphotic) - Respiratory Respiratory exam: Present: other (Inspiratory crackles right posterior field which do not clear with coughing. She does have a cough that sounds "wet". Expiratory rhonchi bilaterally symmetrically. Fair air exchange.). Absent: respiratory distress (She is able to speak in full sentences. 3 L oxygen s aturation 92%.) - Cardiovascular Cardiovascular exam: Present: regular rate, normal rhythm, normal heart sounds, systolic murmur (2/6 systolic ejection murmur best heard at the left mid axillary line.). Absent: diastolic murmur - Abdominal Exam Abdominal exam: Present: soft, Non-Tender - Extremities Exam Extremities exam: Present: pedal edema (1+ pitting edema bilateral ankles.). Absent: calf tenderness (No calf Edema cord or erythema) - Neurological Exam Neurological exam: Present: alert - Psychiatric Psychiatric exam: Present: normal affect, normal mood - Skin Skin exam: Present: warm, dry Course Vital Signs Temperature 98.2 F 02/22/18 16:01 Pulse Rate 86 02/22/18 16:01 Respiratory Rate 20 02/22/18 16:01 Blood Pressure 120/64 02/22/18 16:01 O2 Sat by Pulse Oximetry 93 02/22/18 16:01 Temperature 98.2 F 02/22/18 16:01 Pulse Rate 85 02/22/18 17:54 Respiratory Rate 20 02/22/18 19:47 Blood Pressure 127/69 02/22/18 19:47 O2 Sat by Pulse Oximetry 87 02/22/18 17:54 Oxygen Delivery Oxygen Delivery Nasal Cannula Medical Decision Making - [facility] Narrative Medical decision making narrative: COPD exacerbation. She felt better with DuoNeb 2 here in the emergency department. She does have lung findings on auscultation consistent with a right-sided pneumonia although there is no evidence on chest x-ray. From the labs she appears to be somewhat dry. We will treat this exacerbation concurrent with a community-acquired pneumonia. Her white count today is 21. Before she entered the hospital in October it was 11 therefore the increase is probably not due to the chronic prednisone that she is on but probably underlying infection. ABG was done which did show CO2 of 50 which is slightly elevated. This was drawn on 4 L nasal cannula. She was satting 86-88%. 5 L of cannula afforded saturations 90-92 range. Certainly this is not optimal to have her at such a high level for an extended period of time however she is in no apparent distress respiratory or otherwise alert and speaking in full sentences. I did describe to her BiPAP and the possibility of going on that apparatus. She voiced understanding and agreement. Regarding possible deterioration she has been intubated in the past and she and her son would opt for these measures should all other options fail therefore she is a full code. I spoke with the covering hospitalist and presented the case. He accepted admission. She was transferred to the floor in stable condition. - Medical Records Medical records reviewed: Yes I reviewed the patient's medical records. - Lab Data Lab results reviewed: Yes I reviewed the patient's lab results. Result diagrams: 02/22/18 16:48 02/22/18 16:48 Lab Results 02/22/18 02/22/18 02/22/18 Range/Units 16:48 16:48 16:48 WBC 21.2 H (4.3-11.1) K/mcL RBC 3.43 L (3.82-4.97) M/mcL Hgb 11.0 L (11.5-15.4) g/dL Hct 34.3 L (35.3-44.9) % MCV 100.0 (83.0-100.0) fL MCH 32.1 (28.0-33.3) pg MCHC 32.1 (31.6-35.5) g/dL RDW 13.6 (11.5-14.5) % Plt Count 313 (140-400) K/mcL MPV 9.9 (9.4-12.4) fL Immature Gran % 0.6 (0-4) % Seg Neutrophils % 93.1 % Lymphocytes % 3.0 % Monocytes % 3.0 % Eosinophils % 0.1 % Basophils % 0.2 % Neutrophils # 19.7 H (1.6-8.9) K/mcL Lymphocytes # 0.6 (0.6-4.6) K/mcL Monocytes # 0.6 (0.0-1.3) K/mcL Eosinophils # 0.0 (0.0-0.6) K/mcL Basophils # 0.0 (0.0-0.2) K/mcL D-Dimer 806 H (0-500) ng/mLFEU ABG pH (7.32-7.45) pH Units ABG pCO2 (35-45) mmHg ABG pO2 (85-104) mmHg ABG HCO3 (21-27) mEq/L ABG Total CO2 (20-26) mEq/L ABG O2 Saturation (95-98) % ABG Base Excess (-2 to 3) mEq/L Sodium 131 L (136-145) mEq/L Potassium 4.4 (3.5-5.1) mEq/L Chloride 96 L (98-107) mEq/L Carbon Dioxide 29 (23-29) mEq/L BUN 21 (8-23) mg/dL Creatinine 1.04 (0.60-1.20) mg/dL Est GFR ( Amer) > 60 (> 60) Est GFR (Non-Af Amer) 51 L (> 60) BUN/Creatinine Ratio 20 (6-26) Glucose 121 H (70-105) mg/dL Calculated Osmolality 276 L (280-300) Calcium 9.6 (8.6-10.3) mg/dL Magnesium 1.6 (1.6-2.6) mg/dL Total Bilirubin 0.5 (0.3-1.0) mg/dL AST 12 L (13-39) Units/L ALT 6 L (7-52) Units/L Alkaline Phosphatase 88 (34-104) Units/L Troponin I (< 0.04) ng/mL B-Natriuretic Peptide (Less than 100) pg/mL Serum Total Protein 7.3 (6.4-8.9) g/dL Albumin 3.4 L (3.5-5.7) g/dL Globulin 3.9 H (2.4-3.5) g/dL Albumin/Globulin Ratio 0.9 L (1.1-2.2) [facility] 02/22/18 02/22/18 02/22/18 Range/Units 16:48 16:48 17:44 WBC (4.3-11.1) K/mcL RBC (3.82-4.97) M/mcL Hgb (11.5-15.4) g/dL Hct (35.3-44.9) % MCV (83.0-100.0) fL MCH (28.0-33.3) pg MCHC (31.6-35.5) g/dL RDW (11.5-14.5) % Plt Count (140-400) K/mcL MPV (9.4-12.4) fL Immature Gran % (0-4) % Seg Neutrophils % % Lymphocytes % % Monocytes % % Eosinophils % % Basophils % % Neutrophils # (1.6-8.9) K/mcL Lymphocytes # (0.6-4.6) K/mcL Monocytes # (0.0-1.3) K/mcL Eosinophils # (0.0-0.6) K/mcL Basophils # (0.0-0.2) K/mcL D-Dimer (0-500) ng/mLFEU ABG pH 7.42 (7.32-7.45) pH Units ABG pCO2 50 H (35-45) mmHg ABG pO2 50 L* (85-104) mmHg ABG HCO3 32 H (21-27) mEq/L ABG Total CO2 34 H (20-26) mEq/L ABG O2 Saturation 85 L (95-98) % ABG Base Excess 6 H (-2 to 3) mEq/L Sodium (136-145) mEq/L Potassium (3.5-5.1) mEq/L Chloride (98-107) mEq/L Carbon Dioxide (23-29) mEq/L BUN (8-23) mg/dL Creatinine (0.60-1.20) mg/dL Est GFR ( Amer) (> 60) Est GFR (Non-Af Amer) (> 60) BUN/Creatinine Ratio (6-26) Glucose (70-105) mg/dL Calculated Osmolality (280-300) Calcium (8.6-10.3) mg/dL Magnesium (1.6-2.6) mg/dL Total Bilirubin (0.3-1.0) mg/dL AST (13-39) Units/L ALT (7-52) Units/L Alkaline Phosphatase (34-104) Units/L Troponin I < 0.03 (< 0.04) ng/mL B-Natriuretic Peptide 166 H (Less than 100) pg/mL Serum Total Protein (6.4-8.9) g/dL Albumin (3.5-5.7) g/dL Globulin (2.4-3.5) g/dL Albumin/Globulin Ratio (1.1-2.2) Person Notif of Crit sword - Radiology Data Radiology results reviewed: Yes I reviewed the patient's radiology results. - EKG Data EKG #1 EKG attestation: Yes I reviewed and interpreted this EKG. EKG results narrative: EKG as interpreted by me normal sinus rhythm 80 beats per minutes. Borderline left axis deviation. No T-wave abnormalities. No ST elevations or depressions. No evidence of hypertrophy. No significant change from October 2017.
[2018-02-22 16:55] LABS: Basophils % 0.2 %; Eosinophils % 0.1 %; Hematocrit 34.3 % (35.3-44.9); Immature Granulocytes % 0.6 % (0-4); Lymphocytes # 0.6 K/mcL (0.6-4.6); Mean Corpuscular HGB Conc 32.1 g/dL (31.6-35.5); Mean Corpuscular Hemoglobin 32.1 pg (28.0-33.3); Mean Platelet Volume 9.9 fL (9.4-12.4); Monocytes # 0.6 K/mcL (0.0-1.3); Neutrophils # 19.7 K/mcL (1.6-8.9); Platelet Count 313 K/mcL (140-400); Red Blood Count 3.43 M/mcL (3.82-4.97); Red Cell Distribution Width 13.6 % (11.5-14.5); Segmented Neutrophils % 93.1 %
[2018-02-22 17:17] LABS: Alanine Aminotransferase 6 Units/L (7-52); Albumin 3.4 g/dL (3.5-5.7); Albumin/Globulin Ratio 0.9 (1.1-2.2); Alkaline Phosphatase 88 Units/L (34-104); Aspartate Amino Transferase 12 Units/L (13-39); BUN/Creatinine Ratio 20 (6-26); Bilirubin,Total 0.5 mg/dL (0.3-1.0); Blood Urea Nitrogen 21 mg/dL (8-23); Calcium 9.6 mg/dL (8.6-10.3); Carbon Dioxide 29 mEq/L (23-29); Chloride 96 mEq/L (98-107); Globulin 3.9 g/dL (2.4-3.5); Glucose 121 mg/dL (70-105); Magnesium 1.6 mg/dL (1.6-2.6); Osmolality,Calculated 276 (280-300); Potassium 4.4 mEq/L (3.5-5.1); Sodium 131 mEq/L (136-145); Total Protein 7.3 g/dL (6.4-8.9); eGFR For Non-African Americans 51 (> 60)
[2018-02-22 17:54] LABS: ABG Base Excess 6 mEq/L (-2 to 3); ABG HCO3 32 mEq/L (21-27); ABG Oxygen Saturation 85 % (95-98); ABG PCO2 50 mmHg (35-45); ABG PH 7.42 pH Units (7.32-7.45); ABG PO2 50 mmHg (85-104); ABG TCO2 34 mEq/L (20-26)
[2018-02-22] MEDS ORDERED: 0.9 % Sodium Chloride 500 ML IVC ONE (18:11)
[2018-02-22] MEDS ORDERED: cefTRIAXone 1,000 MG in 0.9 % Sodium Chloride Mini Bag 100 ML IVPB ONE (18:11)
[2018-02-22] MEDS ORDERED: MethylPREDNISolone 40 MG/ML VIAL IVP ONE (18:12)
[2018-02-22] MEDS ORDERED: Naloxone 0.4 MG/ML INJ IVP PRN (18:58)
[2018-02-22] MEDS: MethylPREDNISolone 40 MG/ML VIAL IVP SCH ×2 (20:25→23:39)
[2018-02-22] MEDS: Azithromycin 500 MG in D5% in Water 250 ML IVPB SCH (20:26)
[2018-02-22] MEDS: IRON PS COMPLEX PO SCH (20:27)
[2018-02-22] MEDS: FOLIC ACID PO SCH (20:27)
[2018-02-22] MEDS: B12 PO SCH (20:27)
[2018-02-22] MEDS: (Cevimeline Hcl [Evoxac] 30 MG) PO SCH (20:34)
[2018-02-22] MEDS ORDERED: Cholecalciferol (D-3) 1,000 UNIT TABLET PO SCH (21:00)
[2018-02-22] MEDS ORDERED: NON-FORMULARY MEDICATION 1 EACH EACH (Calcium Carbonate/Vitamin D3 [Calcium 600-Vit D3 800 PO SCH (21:00)
[2018-02-22] MEDS ORDERED: cefTRIAXone 1,000 MG in 0.9 % Sodium Chloride Mini Bag 100 ML IVPB SCH (22:58)
[2018-02-22] MEDS: traMADol 50 MG TABLET PO PRN (23:39)
[2018-02-23] MEDS: Ipratropium/Albuterol Neb 3 ML IH PRN ×3 (02:32→16:31)
[2018-02-23] MEDS: MethylPREDNISolone 40 MG/ML VIAL IVP SCH ×3 (04:35→22:14)
[2018-02-23] MEDS: *HR* Enoxaparin 30 MG/0.3 ML SYRINGE SQ SCH (05:08)
[2018-02-23 05:51] LABS: Alanine Aminotransferase 6 Units/L (7-52); Albumin 3.2 g/dL (3.5-5.7); Albumin/Globulin Ratio 0.8 (1.1-2.2); Alkaline Phosphatase 84 Units/L (34-104); Aspartate Amino Transferase 10 Units/L (13-39); BUN/Creatinine Ratio 23 (6-26); Bilirubin,Total 0.4 mg/dL (0.3-1.0); Blood Urea Nitrogen 18 mg/dL (8-23); Calcium 8.9 mg/dL (8.6-10.3); Carbon Dioxide 30 mEq/L (23-29); Chloride 93 mEq/L (98-107); Globulin 3.9 g/dL (2.4-3.5); Glucose 151 mg/dL (70-105); Osmolality,Calculated 279 (280-300); Potassium 3.6 mEq/L (3.5-5.1); Sodium 132 mEq/L (136-145); Total Protein 7.1 g/dL (6.4-8.9); eGFR For Non-African Americans > 60 (> 60)
[2018-02-23] MEDS: amLODIPine 5 MG TABLET PO SCH (09:17)
[2018-02-23] MEDS: Metoprolol 100 MG TABLET PO SCH (09:17)
[2018-02-23] MEDS: Famotidine 20 MG TABLET PO SCH (09:17)
[2018-02-23] MEDS: cefTRIAXone 1,000 MG in Water for inj. (sterile) 20 ML 10 ML IVPB SCH (09:17)
[2018-02-23] MEDS: FOLIC ACID PO SCH ×2 (09:18→22:31)
[2018-02-23] MEDS: B12 PO SCH ×2 (09:18→22:31)
[2018-02-23] MEDS: IRON PS COMPLEX PO SCH ×2 (09:18→22:31)
[2018-02-23] MEDS: (Cevimeline Hcl [Evoxac] 30 MG) PO SCH ×3 (09:18→22:31)
[2018-02-23] MEDS: traMADol 50 MG TABLET PO PRN ×2 (09:21→22:28)
[2018-02-23] MEDS: Cholecalciferol (D-3) 1,000 UNIT TABLET PO SCH (09:21)
--- NOTE | 2018-02-23 13:09 | Internal Med History&Physical ---
Date of Encounter: 02/23/18 Time of Encounter: 13:04 Assessment and Plan (1) Pneumonia Current visit: No Status: Acute Patient presented to emergency department with complaints of increased shortness of breath and a productive cough. Patient was recently treated for pneumonia but her symptoms seem returned after her antibiotic course of finished. Patient was admitted for pneumonia and currently continues on Rocephin. Patient's chest x-ray and OR showed basilar opacities, which were present on her recent chest x- ray. Patient's WBC count on admission was 21. Patient states that her respiratory effort has improved overnight, but continues to complain of productive cough. No sputum has been observed. Patient has remained afebrile overnight. Patient continues to have fine rales heard to the lower third of her lung phillip. No hypoxia. We will continue to monitor closely. We will continue antibiotics . Qualifiers: Pneumonia type: due to unspecified organism Laterality: right Lung location: middle lobe of lung Qualified Code(s): J18.1 - Lobar pneumonia, unspecified organism (2) Essential hypertension Current visit: Yes Status: Chronic Vital signs are stable. We will continue with current medications. (3) COPD (chronic obstructive pulmonary disease) Current visit: Yes Status: Chronic Patient has been admitted for pneumonia and exacerbation of her COPD. Currently patient appears relaxed with respiratory effort and states that her respiratory status has improved overnight. Lungs do have fine rales heard to the lower phillip, but otherwise are clear. We will continue with current medications and bronchodilators. Qualifiers: COPD type: unspecified COPD Qualified Code(s): J44.9 - Chronic obstructive pulmonary disease, unspecified Internal Medicine - H&P: HPI Chief complaint: Exacerbation of COPD Admitted From: Home Plans for Post Hospital Care: Home History of present illness: Ms. Miranda is a 77 year old female, who presented to the emergency department yesterday with complaints of increased shortness of breath and a productive cough with a green sputum received. Patient with recent history of pneumonia which has been recently treated. Patient states that she improved after starting on her most recent antibiotic but then within days of finishing the antibiotic her pulmonary status began to decline. Patient was treated in the emergency department with bronchodilators and antibiotics. Chest x-ray was obtained in emergency department which showed basilar opacities, which were pres ent on a previous chest x-ray. Initial lab showed WBC count of 21 Patient today appears relaxed and states that her respiratory effort has improved overnight. Patient states she continues to have productive cough but no sputum has been produced. Denies any other discomforts. 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) Psychiatric history: no psych history - Past Surgical History Surgical History: hysterectomy - Social History Smoking Status: Never smoker Smokeless Tobacco Status: No Alcohol use: none Drug use: none - Family History Mother Adopted: [place]: jacquelyn wayne Family Member Ethnicity: Non- Living Status: Age at : 85 Cause of : unknown Hx Family Cardiac Disorders: (unknown) Hx Family Respiratory Disorders: (unknown) Hx Family Cancer: (unknown) Hx Family GI Disorders: (unknown) Hx Family Genitourinary Disorders: (unknown) Hx Family Endocrine Disorder: (unknown) Hx Family Musculoskeletal Disorders: (unknown) Hx Family Neuromuscular Disorders: (unknown) Hx Family Neurologic Disorders: (unknown) Hx Family HEENT Disorders: (unknown) Hx Family Autoimmune Disorders: (unknown) Hx Family Reproductive Disorders: (unknown) Hx Family Psychosocial Disorders: (unknown) Hx Family Medical Disorders: (unknown) Internal Medicine - H&P: Meds Calcium Carbonate/Vitamin D3 [Calcium 600-Vit D3 800 Tablet] 1 each PO BID 12/22/14 [History] Cevimeline HCl [Evoxac] 30 mg PO TID 12/22/14 [History] Losartan [Cozaar] 50 mg PO DAILY 12/22/14 [History] TraMADol [Ultram] 100 mg PO Q6HR PRN 12/22/14 [History] Iron Ps Complex/B12/Folic Acid [Iferex 150 Forte Capsule] 1 each PO BID 06/30/16 [History] Metoprolol [Lopressor] 100 mg PO DAILY 10/11/17 [History] Buspirone HCl [Buspar] 7.5 mg PO BID 10/12/17 [History] Ranitidine HCl [Zantac] 300 mg PO DAILY 10/12/17 [History] amLODIPine [Norvasc] 10 mg PO DAILY 10/12/17 [History] Albuterol Neb [Proventil Neb] 2.5 mg IH [id number] PRN inhsol 10/17/17 [Rx] Docusate [Colace] 100 mg PO BID capsule 10/17/17 [Rx] Ipratropium/Albuterol Neb [Duoneb] 3 ml IH [id number] inhsol 10/17/17 [Rx] Allergy/AdvReac Type Severity Reaction Status Date / Time ciprofloxacin [From Cipro] Allergy Hallucinati Verified 02/22/18 16:04 ng All Systems PM: A 10-system review of systems was performed and is negative for pertinent findings except as documented above in the HPI. - Constitutional Constitutional: as per HPI - EENT Eyes: as per HPI, no change in vision, no discharge, no pain, no photophobia Ears: no ear discharge, no ear pain, no tinnitus Nose, mouth and throat: no dysphagia, no nasal discharge, no neck pain, no sore throat - Cardiovascular Cardiovascular ROS IM: as per HPI, no chest pain, no diaphoresis, no dyspnea, no lightheadedness, no palpitations, no syncope - Respiratory Respiratory: as per HPI, no cough, no dyspnea, no wheezing, no excessive phlegm production - Gastrointestinal Gastrointestinal: as per HPI, no abdominal pain, no diarrhea, no hematemesis, no hematochezia, no melena, no nausea, no vomiting - Genitourinary Genitourinary: as per HPI, no change in urinary stream, no dysuria, no flank pain, no hematuria - Musculoskeletal Musculoskeletal ROS IM: as per HPI, no numbness, no tingling - Integumentary Integumentary IM: as per HPI, no rash, no unusual bruising - Neurological Neurological ROS: as per HPI, no confusion, no convulsions, no focal weakness, no numbness, no tingling, no tremor(s) - Hematologic/Lymphatic Hematologic/Lymphatic: no easy bruising - Constitutional Vitals: Temp Pulse Resp BP Pulse Ox 98.8 F 99 14 113/67 100 02/23/18 09:00 02/23/18 09:00 02/23/18 09:00 02/23/18 09:00 02/23/18 09:00 General appearance: Present: A&O X 3, pleasant - Head Head exam: Present: atraumatic, normocephalic - Eye Eye exam: Present: PERRL, conjuntiva pink, sclera anicteric Pupils: Present: PERRL - Neck Neck exam general surgery: Present: supple, trachea midline. Absent: lymphadenopathy - Respiratory Respiratory exam: Present: CTAB. Absent: accessory muscle use, rales, rhonchi, wheezes Additional comments: Lungs are clear throughout upper phillip with fine rales heard to lower one third lung phillip. Respiratory effort appears relaxed. No productive cough observed. - Cardiovascular Cardiovascular exam: Present: RRR, +S1, +S2. Absent: diastolic murmur, gallop, rubs, systolic murmur - GI/Abdominal GI/Abdominal exam: Present: normal bowel sounds, soft, no peritoneal signs. Absent: distended, tenderness - Extremities Exam Extremities exam: Present: warm, radial pulses palpable and symmetrical. Absent: calf tenderness, cyanotic, pedal edema - Neurological Exam Neurological exam: Present: CN II-XII intact, oriented X3, no focal deficits. Absent: pronater drift, facial droop, speech deficit - Skin Skin exam: Present: dry, intact Internal Med - H&P Results - Labs CBC & Chem 7: 02/22/18 16:48 02/23/18 04:34 Labs: Short CBC 02/22/18 Range/Units 16:48 WBC 21.2 H (4.3-11.1) K/mcL Hgb 11.0 L (11.5-15.4) g/dL Hct 34.3 L (35.3-44.9) % Plt Count 313 (140-400) K/mcL Neutrophils # 19.7 H (1.6-8.9) K/mcL BMP 02/22/18 02/23/18 16:48 04:34 Sodium 131 L 132 L Potassium 4.4 3.6 Chloride 96 L 93 L Carbon Dioxide 29 30 H BUN 21 18 Creatinine 1.04 0.79 Glucose 121 H 151 H Calcium 9.6 8.9 Cardiac Enzymes 02/22/18 Range/Units 16:48 Troponin I < 0.03 (< 0.04) ng/mL Liver Function 02/22/18 02/23/18 Range/Units 16:48 04:34 Total Bilirubin 0.5 0.4 (0.3-1.0) mg/dL AST 12 L 10 L (13-39) Units/L ALT 6 L 6 L (7-52) Units/L Alkaline Phosphatase 88 84 (34-104) Units/L Albumin 3.4 L 3.2 L (3.5-5.7) g/dL - ABG Interpretation ABG results: 02/22/18 17:44 ABG pH 7.42 ABG pCO2 50 H ABG pO2 50 L* ABG HCO3 32 H ABG Total CO2 34 H ABG O2 Saturation 85 L ABG Base Excess 6 H - Impressions ITS Impressions Chest X-Ray 02/22/18 16:24 IMPRESSION: Stable portable study. D/ / Cecilia Reed Cha, MD / Cecilia Reed Cha, MD Interpreting Provider: Cecilia Reed Cha, MD
--- NOTE | 2018-02-23 15:43 | Electrocardiograph Report ---
[place] [id number] Test Date: 2018-02-22 Pat Name: Natasha Miranda Department: 2000 Room: 117 Gender: F Alarm Mechanic: : 1940 Requested By: Tee Marr Order Number: [id number] Reading MD: Vanna Sarah Measurements Intervals [place] Rate: 80 P: 34 IN: 142 QRS: 3 QRSD: 94 T: 24 QT: 349 QTc: 385 Interpretive Statements SINUS RHYTHM ARTIFACT Electronically Signed On 02-23-2018 15:41:47 EST by Vanna Sarah
[2018-02-23] MEDS: Azithromycin 500 MG in D5% in Water 250 ML IVPB SCH (22:19)
[2018-02-24] MEDS: MethylPREDNISolone 40 MG/ML VIAL IVP SCH ×4 (02:04→20:29)
[2018-02-24] MEDS: Ipratropium/Albuterol Neb 3 ML IH PRN (02:08)
[2018-02-24 06:06] LABS: Hematocrit 31.7 % (35.3-44.9); Hemoglobin 10.2 g/dL (11.5-15.4); Mean Corpuscular HGB Conc 32.2 g/dL (31.6-35.5); Mean Corpuscular Hemoglobin 31.7 pg (28.0-33.3); Mean Corpuscular Volume 98.4 fL (83.0-100.0); Mean Platelet Volume 10.1 fL (9.4-12.4); Platelet Count 374 K/mcL (140-400); Red Blood Count 3.22 M/mcL (3.82-4.97); Red Cell Distribution Width 13.2 % (11.5-14.5)
[2018-02-24 06:20] LABS: Alanine Aminotransferase 6 Units/L (7-52); Albumin 3.2 g/dL (3.5-5.7); Albumin/Globulin Ratio 0.9 (1.1-2.2); Alkaline Phosphatase 80 Units/L (34-104); Aspartate Amino Transferase 12 Units/L (13-39); BUN/Creatinine Ratio 27 (6-26); Bilirubin,Total 0.3 mg/dL (0.3-1.0); Blood Urea Nitrogen 21 mg/dL (8-23); Calcium 8.9 mg/dL (8.6-10.3); Carbon Dioxide 28 mEq/L (23-29); Chloride 96 mEq/L (98-107); Globulin 3.7 g/dL (2.4-3.5); Glucose 127 mg/dL (70-105); Magnesium 1.7 mg/dL (1.6-2.6); Osmolality,Calculated 281 (280-300); Potassium 3.3 mEq/L (3.5-5.1); Sodium 133 mEq/L (136-145); Total Protein 6.9 g/dL (6.4-8.9); eGFR For Non-African Americans > 60 (> 60)
[2018-02-24] MEDS: traMADol 50 MG TABLET PO PRN ×2 (06:36→15:38)
[2018-02-24] MEDS: *HR* Enoxaparin 30 MG/0.3 ML SYRINGE SQ SCH (06:37)
[2018-02-24] MEDS: cefTRIAXone 1,000 MG in Water for inj. (sterile) 20 ML 10 ML IVPB SCH (08:52)
[2018-02-24] MEDS: amLODIPine 5 MG TABLET PO SCH (08:52)
[2018-02-24] MEDS: Famotidine 20 MG TABLET PO SCH (08:53)
[2018-02-24] MEDS: Cholecalciferol (D-3) 1,000 UNIT TABLET PO SCH (08:53)
[2018-02-24] MEDS: Metoprolol 100 MG TABLET PO SCH (08:53)
[2018-02-24] MEDS: FOLIC ACID PO SCH (08:54)
[2018-02-24] MEDS: B12 PO SCH (08:54)
[2018-02-24] MEDS: (Cevimeline Hcl [Evoxac] 30 MG) PO SCH ×3 (08:54→23:41)
[2018-02-24] MEDS: IRON PS COMPLEX PO SCH (08:54)
--- NOTE | 2018-02-24 14:54 | Internal Med Progress Note ---
Date of Encounter: 02/24/18 Time of Encounter: 14:52 - Assessment and plan (1) Pneumonia Current Visit: Yes Status: Acute Assessment and plan: No acute issues. Patient continues on IV antibiotics. Has remained afebrile. No productive cough noted today. Patient denies any dyspnea but continues to complain of the amylase. We will continue with current medications. Patient noted to desaturate with effort. We will attempt to requalify patient for home O2 if needed. Qualifiers: Pneumonia type: due to unspecified organism Laterality: right Lung locati on: middle lobe of lung Qualified Code(s): J18.1 - Lobar pneumonia, unspecified organism (2) Essential hypertension Current Visit: Yes Status: Chronic Assessment and plan: Vital signs stable. We will continue with current medications. (3) COPD (chronic obstructive pulmonary disease) Current Visit: Yes Status: Chronic Assessment and plan: Patient continues to have dyspnea with exertion. Lungs continue to have rales to lower one third of lung phillip. Patient continues on antibiotics for pneumonia. We will continue to monitor. Qualifiers: COPD type: unspecified COPD Qualified Code(s): J44.9 - Chronic obstructive pulmonary disease, unspecified - Subjective Interval history: Patient appears relaxed and currently denies any discomforts or shortness of breath. Patient states that she continues to feel somewhat weak. Nurse reports patient continues to require oxygen due to desaturation with minimal effort. Medical records were reviewed which shows patient to have had a MRI of the abdomen indicating that she had a right renal cyst. - Constitutional Vitals: Temp Pulse Resp BP Pulse Ox 97.4 F L 78 16 123/64 98 02/24/18 11:32 02/24/18 11:32 02/24/18 11:32 02/24/18 11:32 02/24/18 11:32 General appearance: Present: A&O X 3, pleasant - Head Head exam: Present: atraumatic, normocephalic - Eye Eye exam: Present: PERRL, conjuntiva pink, sclera anicteric Pupils: Present: PERRL - Neck Neck exam general surgery: Present: supple, trachea midline. Absent: lymphadenopathy - Respiratory Respiratory exam: Present: CTAB. Absent: accessory muscle use, rales, rhonchi, wheezes Additional comments: Lungs are clear throughout upper phillip with fine rales her to lower the right upper lung phillip. No productive cough noted. Reoffered appears relaxed while at rest. - Cardiovascular Cardiovascular exam: Present: RRR, +S1, +S2. Absent: diastolic murmur, gallop, rubs, systolic murmur - GI/Abdominal GI/Abdominal exam: Present: normal bowel sounds, soft, no peritoneal signs. Absent: distended, tenderness - Extremities Exam Extremities exam: Present: pedal edema, warm, radial pulses palpable and symmetrical. Absent: calf tenderness, cyanotic - Neurological Exam Neurological exam: Present: CN II-XII intact, oriented X3, no focal deficits. Absent: pronater drift, facial droop, speech deficit - Skin Skin exam: Present: dry, intact Internal Medicine: Result - Labs CBC & Chem 7: 02/24/18 04:30 02/24/18 04:30 Labs: Short CBC 02/24/18 Range/Units 04:30 WBC 22.8 H (4.3-11.1) K/mcL Hgb 10.2 L (11.5-15.4) g/dL Hct 31.7 L (35.3-44.9) % Plt Count 374 (140-400) K/mcL BMP 02/24/18 04:30 Sodium 133 L Potassium 3.3 L Chloride 96 L Carbon Dioxide 28 BUN 21 Creatinine 0.78 Glucose 127 H Calcium 8.9 Liver Function 02/24/18 Range/Units 04:30 Total Bilirubin 0.3 (0.3-1.0) mg/dL AST 12 L (13-39) Units/L ALT 6 L (7-52) Units/L Alkaline Phosphatase 80 (34-104) Units/L Albumin 3.2 L (3.5-5.7) g/dL - ABG Interpretation ABG results: ABG ABG pH 7.42 pH Units (7.32-7.45) 02/22/18 17:44 ABG pCO2 50 mmHg (35-45) H 02/22/18 17:44 ABG pO2 50 mmHg (85-104) L* 02/22/18 17:44 ABG O2 Saturation 85 % (95-98) L 02/22/18 17:44 PT/INR, D-dimer D-Dimer 806 ng/mLFEU (0-500) H 02/22/18 16:48 Consult Discharge Plan - Plan Referrals: Burt Vazquez, IMAN [Primary Care Provider] -
[2018-02-24] MEDS: Fluconazole 100 MG TABLET PO SCH (15:44)
[2018-02-24] MEDS: Azithromycin 500 MG in D5% in Water 250 ML IVPB SCH (20:29)
[2018-02-24] MEDS: Iron Polysaccharide Complex 150 MG CAPSULE PO SCH (20:38)
[2018-02-25] MEDS: MethylPREDNISolone 40 MG/ML VIAL IVP SCH ×3 (01:32→13:41)
[2018-02-25] MEDS: *HR* Enoxaparin 30 MG/0.3 ML SYRINGE SQ SCH (06:12)
[2018-02-25] MEDS: traMADol 50 MG TABLET PO PRN ×2 (06:13→21:45)
[2018-02-25] MEDS ORDERED: Fluconazole 100 MG TABLET PO SCH (09:00)
[2018-02-25] MEDS: amLODIPine 5 MG TABLET PO SCH (09:18)
[2018-02-25] MEDS: Fluconazole 100 MG TABLET PO SCH (09:18)
[2018-02-25] MEDS: Cholecalciferol (D-3) 1,000 UNIT TABLET PO SCH (09:18)
[2018-02-25] MEDS: Metoprolol 100 MG TABLET PO SCH (09:18)
[2018-02-25] MEDS: (Cevimeline Hcl [Evoxac] 30 MG) PO SCH ×3 (09:19→21:46)
[2018-02-25] MEDS: Famotidine 20 MG TABLET PO SCH (09:19)
[2018-02-25] MEDS: Iron Polysaccharide Complex 150 MG CAPSULE PO SCH ×2 (09:19→21:45)
[2018-02-25] MEDS: cefTRIAXone 1,000 MG in Water for inj. (sterile) 20 ML 10 ML IVPB SCH (09:23)
[2018-02-25] MEDS: Ipratropium/Albuterol Neb 3 ML IH PRN ×2 (09:43→15:20)
[2018-02-25] MEDS ORDERED: *HR* FentaNYL PATCH 12 MCG PATCH TD SCH (16:45)
[2018-02-25] MEDS: Nystatin SUSP 5 ML UD.LIQ PO SCH ×2 (17:32→21:46)
[2018-02-25] MEDS: Ascorbic Acid 500 MG TABLET PO SCH (21:44)
[2018-02-26] MEDS: MethylPREDNISolone 40 MG/ML VIAL IVP SCH ×4 (00:19→23:32)
[2018-02-26] MEDS: *HR* Enoxaparin 30 MG/0.3 ML SYRINGE SQ SCH (05:15)
[2018-02-26] MEDS: traMADol 50 MG TABLET PO PRN ×3 (05:15→20:16)
[2018-02-26] MEDS: Cholecalciferol (D-3) 1,000 UNIT TABLET PO SCH (09:06)
[2018-02-26] MEDS: Famotidine 20 MG TABLET PO SCH (09:07)
[2018-02-26] MEDS: Metoprolol 100 MG TABLET PO SCH (09:07)
[2018-02-26] MEDS: Iron Polysaccharide Complex 150 MG CAPSULE PO SCH ×2 (09:07→20:16)
[2018-02-26] MEDS: Ascorbic Acid 500 MG TABLET PO SCH ×2 (09:07→20:14)
[2018-02-26] MEDS: amLODIPine 5 MG TABLET PO SCH (09:07)
[2018-02-26] MEDS: Nystatin SUSP 5 ML UD.LIQ PO SCH ×4 (09:08→20:14)
[2018-02-26] MEDS: cefTRIAXone 1,000 MG in Water for inj. (sterile) 20 ML 10 ML IVPB SCH (09:08)
[2018-02-26] MEDS: (Cevimeline Hcl [Evoxac] 30 MG) PO SCH ×3 (09:23→20:17)
[2018-02-26] MEDS: Ipratropium/Albuterol Neb 3 ML IH PRN (16:20)
--- NOTE | 2018-02-26 19:14 | Internal Med Progress Note ---
Date of Encounter: 02/25/18 Time of Encounter: 15:00 - Subjective Interval history: - Assessment and plan (1) Pneumonia immunosup chronic prednisone Current Visit: Yes Status: Acute Assessment and plan: No acute issues. Patient continues on IV antibiotics. Has remained afebrile. No productive cough noted today. Patient denies any dyspnea but continues to complain of the amylase. We will continue with current medications. Patient noted to desaturate with effort. We will attempt to requalify patient for home O2 if needed. sputum growing MRSA on zithromax and rocephin will dc zithromax and start vanco pt immunopsuppressed due to chronic prednisone for sarcoid Qualifiers: Pneumonia type: due to unspecified organism Laterality: right Lung location: middle lobe of lung Qualified Code(s): J18.1 - Lobar pneumonia, unspecified organism (2) Essential hypertension Current Visit: Yes Status: Chronic Assessment and plan: Vital signs stable. We will continue with current medications. (3) COPD (chronic obstructive pulmonary disease) Current Visit: Yes Status: Chronic Assessment and plan: Patient continues to have dyspnea with exertion. Lungs continue to have rales to lower one third of lung phillip. Patient continues on antibiotics for pneumonia. We will continue to monitor. Qualifiers: COPD type: unspecified COPD Qualified Code(s): J44.9 - Chronic obstructive pulmonary disease, unspecified 4 - chronic pain thoracic compression fracture osteoporosis pain is severe cries over it does not like to take pills discussed with son would like to try fentanyl patch discussed with pharmacy will start lowest dose increase to 25 if needed - Subjective Interval history: patient still with loose prod cough very weak Nurse reports patient continues to require oxygen due to desaturation with minimal effort. says she has had home oxygen in past not now thinks she needs Medical records were reviewed which shows patient to have had a MRI of the abdomen indicating that she had a right renal cyst. needs renal ultrasound fu back severe 8/10 pain chronic - Constitutional General appearance: Present: A&O X 3, pleasant - Head Head exam: Present: atraumatic, normocephalic - Eye Eye exam: Present: PERRL, conjuntiva pink, sclera anicteric Pupils: Present: PERRL - Neck Neck exam general surgery: Present: supple, trachea midline. Absent: lymphadenopathy - Respiratory Respiratory exam: Present: CTAB. Absent: accessory muscle use, rales, rhonchi, wheezes Additional comments: Lungs are clear throughout upper phillip with fine rales her to lower the right upper lung phillip. No productive cough noted. Reoffered appears relaxed while at rest. - Cardiovascular Cardiovascular exam: Present: RRR, +S1, +S2. Absent: diastolic murmur, gallop, rubs, systolic murmur - GI/Abdominal GI/Abdominal exam: Present: normal bowel sounds, soft, no peritoneal signs. Absent: distended, tenderness - Extremities Exam Extremities exam: Present: pedal edema, warm, radial pulses palpable and symmetrical. Absent: calf tenderness, cyanotic - Neurological Exam Neurological exam: Present: CN II-XII intact, oriented X3, no focal deficits. Absent: pronater drift, facial droop, speech deficit - Skin Skin exam: Present: dry, intact - Constitutional Vitals: Temp Pulse Resp BP Pulse Ox 98.5 F 77 17 121/63 97 02/26/18 19:01 02/26/18 19:01 02/26/18 19:01 02/26/18 19:01 02/26/18 19:01 General appearance: Present: A&O X 3, pleasant Internal Medicine: Result - Labs CBC & Chem 7: 02/24/18 04:30 02/24/18 04:30 - ABG Interpretation ABG results: ABG ABG pH 7.42 pH Units (7.32-7.45) 02/22/18 17:44 ABG pCO2 50 mmHg (35-45) H 02/22/18 17:44 ABG pO2 50 mmHg (85-104) L* 02/22/18 17:44 ABG O2 Saturation 85 % (95-98) L 02/22/18 17:44 PT/INR, D-dimer D-Dimer 806 ng/mLFEU (0-500) H 02/22/18 16:48 Consult Discharge Plan - Plan Referrals: Burt Vazquez, CREDIT VERIFICATION CLERK [Primary Care Provider] -
--- NOTE | 2018-02-26 19:16 | Internal Med Progress Note ---
Date of Encounter: 02/26/18 Time of Encounter: 14:55 - Subjective Interval history: - Assessment and plan (1) Pneumonia immunosup chronic prednisone Current Visit: Yes Status: Acute Assessment and plan: No acute issues. Patient continues on IV antibiotics. Has remained afebrile. No productive cough noted today. Patient denies any dyspnea but continues to complain of the amylase. We will continue with current medications. Patient noted to desaturate with effort. We will attempt to requalify patient for home O2 if needed. sputum growing MRSA on zithromax and rocephin Did dc zithromax and start vanco pt immunopsuppressed due to chronic prednisone for sarcoid Qualifiers: Pneumonia type: due to unspecified organism Laterality: right Lung location: middle lobe of lung Qualified Code(s): J18.1 - Lobar pneumonia, unspecified organism (2) Essential hypertension Current Visit: Yes Status: Chronic Assessment and plan: Vital signs stable. We will continue with current medications. (3) COPD (chronic obstructive pulmonary disease) Current Visit: Yes Status: Chronic Assessment and plan: Patient continues to have dyspnea with exertion. Lungs continue to have rales to lower one third of lung phillip. Patient continues on antibiotics for pn eumonia. We will continue to monitor. Qualifiers: COPD type: unspecified COPD Qualified Code(s): J44.9 - Chronic obstructive pulmonary disease, unspecified 4 - chronic pain thoracic compression fracture osteoporosis pain is severe cries over it does not like to take pills discussed with son would like to try fentanyl patch discussed with pharmacy will start lowest dose increase to 25 if needed - Subjective Interval history: patient still with loose prod cough very weak Nurse reports patient continues to require oxygen due to desaturation with minimal effort. says she has had home oxygen in past not now thinks she needs home o2 Medical records were reviewed which shows patient to have had a MRI of the abdomen indicating that she had a right renal cyst. needs renal ultrasound fu back severe 8/10 pain chronic - Constitutional General appearance: Present: A&O X 3, pleasant - Head Head exam: Present: atraumatic, normocephalic - Eye Eye exam: Present: PERRL, conjuntiva pink, sclera anicteric Pupils: Present: PERRL - Neck Neck exam general surgery: Present: supple, trachea midline. Absent: lymphadenopathy - Respiratory Respiratory exam: Present: CTAB. Absent: accessory muscle use, rales, rhonchi, wheezes Additional comments: Lungs are clear throughout upper phillip with fine rales her to lower the right upper lung phillip. No productive cough noted. Reoffered appears relaxed while at rest. - Cardiovascular Cardiovascular exam: Present: RRR, +S1, +S2. Absent: diastolic murmur, gallop, rubs, systolic murmur - GI/Abdominal GI/Abdominal exam: Present: normal bowel sounds, soft, no peritoneal signs. Absent: distended, tenderness - Extremities Exam Extremities exam: Present: pedal edema, warm, radial pulses palpable and symmetrical. Absent: calf tenderness, cyanotic - Neurological Exam Neurological exam: Present: CN II-XII intact, oriented X3, no focal deficits. Absent: pronater drift, facial droop, speech deficit - Skin Skin exam: Present: dry, intact - Constitutional Vitals: Temp Pulse Resp BP Pulse Ox 98.5 F 77 17 121/63 97 02/26/18 19:01 02/26/18 19:01 02/26/18 19:01 02/26/18 19:01 02/26/18 19:01 General appearance: Present: A&O X 3, pleasant Internal Medicine: Result - Labs CBC & Chem 7: 02/24/18 04:30 02/24/18 04:30 - ABG Interpretation ABG results: ABG ABG pH 7.42 pH Units (7.32-7.45) 02/22/18 17:44 ABG pCO2 50 mmHg (35-45) H 02/22/18 17:44 ABG pO2 50 mmHg (85-104) L* 02/22/18 17:44 ABG O2 Saturation 85 % (95-98) L 02/22/18 17:44 PT/INR, D-dimer D-Dimer 806 ng/mLFEU (0-500) H 02/22/18 16:48 Consult Discharge Plan - Plan Referrals: Burt Vazquez, SOCIAL INSURANCE ADMINISTRATOR [Primary Care Provider] -
[2018-02-27] MEDS: *HR* Enoxaparin 30 MG/0.3 ML SYRINGE SQ SCH (06:00)
[2018-02-27] MEDS: traMADol 50 MG TABLET PO PRN ×3 (06:02→21:25)
[2018-02-27] MEDS: Cholecalciferol (D-3) 1,000 UNIT TABLET PO SCH (08:48)
[2018-02-27] MEDS: Iron Polysaccharide Complex 150 MG CAPSULE PO SCH ×2 (08:49→21:25)
[2018-02-27] MEDS: Metoprolol 100 MG TABLET PO SCH (08:49)
[2018-02-27] MEDS: amLODIPine 5 MG TABLET PO SCH (08:49)
[2018-02-27] MEDS: Famotidine 20 MG TABLET PO SCH (08:50)
[2018-02-27] MEDS: Ascorbic Acid 500 MG TABLET PO SCH ×2 (08:50→21:25)
[2018-02-27] MEDS: Nystatin SUSP 5 ML UD.LIQ PO SCH ×4 (08:50→21:25)
[2018-02-27] MEDS: cefTRIAXone 1,000 MG in Water for inj. (sterile) 20 ML 10 ML IVPB SCH (08:50)
[2018-02-27] MEDS: MethylPREDNISolone 40 MG/ML VIAL IVP SCH ×2 (08:51→18:48)
[2018-02-27] MEDS: (Cevimeline Hcl [Evoxac] 30 MG) PO SCH ×3 (08:51→21:25)
--- NOTE | 2018-02-27 15:32 | Internal Med Progress Note ---
Addendum entered and electronically signed by Louie Negro MD 02/27/18 16:32: I have personally performed a face to face evaluation on this patient. I have r eviewed and agree with the care plan. History and Exam by me shows: Patient is feeling better, generally breathing better. She has been found to have MRSA in her sputum and for this reason is begun on vancomycin. We will need to arrange home antibiotics which can cover. In the meantime. She is otherwise feeling fairly well. Discussed care with other providers and/or nursing. Patient has no complaint of chest discomfort, dyspnea, orthopnea, palpitations, nausea or vomiting, constipation or diarrhea, other changes in bowel habits, difficulty with urination, rash or itching, or other new complaints, except as mentioned above. Review of systems is otherwise negative. Examination: (Except as mentioned above): General: In no apparent distress. Alert and oriented 3. Nondiaphoretic. Head: Atraumatic and normocephalic. Respiratory: No use of accessory muscles. Diffuse sonorous rhonchi with good airflow. Cardiovascular: Regular rate and rhythm without murmur appreciated. Abdomen: Bowel sounds are normal. No hepatosplenomegaly mass or tenderness appreciated. Obese and therefore difficult to palpate deeply. Extremities: No cyanosis clubbing or edema. Patient is examined upright in chair and this also limits exam. Skin: Warm and non-diaphoretic with no new lesions noted. As above, I feel that she should have another day of MRSAcovering antibiotics and consider home in a day or so. Original Note: Date of Encounter: 02/27/18 Time of Encounter: 15:29 - Assessment and plan (1) Pneumonia Current Visit: Yes Status: Acute Assessment and plan: Patient states that her folate status has improved. Patient's sputum cultures shows positive for MRSA. Patient continues on IV antibiotics. Has remained afebrile. No productive cough noted today. Patient denies any dyspnea while at rest. We will continue with current medication Qualifiers: Pneumonia type: due to unspecified organism Laterality: right Lung location: middle lobe of lung Qualified Code(s): J18.1 - Lobar pneumonia, unspecified organism (2) Essential hypertension Current Visit: Yes Status: Chronic Assessment and plan: Vital signs stable. We will continue with current medications. (3) COPD (chronic obstructive pulmonary disease) Current Visit: Yes Status: Chronic Assessment and plan: Patient continues to have dyspnea with exertion. Lungs continue to have rales to lower one third of lung phillip. Patient continues on antibiotics for MRSA pneumonia. We will continue to monitor. Qualifiers: COPD type: unspecified COPD Qualified Code(s): J44.9 - Chronic obstructive pulmonary disease, unspecified - Time Spent With Patient less than 15 minutes - Subjective Interval history: Patient appears relaxed and currently denies any discomforts or shortness of breath. Patient states that she continues to feel somewhat weak. Nurse reports patient continues to require oxygen due to desaturation with minimal effort. Sputum culture shows growth of MRSA bacteria. Patient currently on IV vancomycin. - Constitutional Vitals: Temp Pulse Resp BP Pulse Ox 96.9 F L 75 16 130/72 97 02/27/18 08:39 02/27/18 11:20 02/27/18 11:20 02/27/18 11:20 02/27/18 11:20 General appearance: Present: A&O X 3, pleasant - Head Head exam: Present: atraumatic, normocephalic - Eye Eye exam: Present: PERRL, conjuntiva pink, sclera anicteric Pupils: Present: PERRL - Neck Neck exam general surgery: Present: supple, trachea midline. Absent: lymphaden opathy - Respiratory Respiratory exam: Present: CTAB. Absent: accessory muscle use, rales, rhonchi, wheezes Additional comments: Lungs are clear throughout upper phillip but noted scattered fine rales throughout lower half. Respiratory status appears relaxed while at rest. Productive cough with thick butts sputum received - Cardiovascular Cardiovascular exam: Present: RRR, +S1, +S2. Absent: diastolic murmur, gallop, rubs, systolic murmur - GI/Abdominal GI/Abdominal exam: Present: normal bowel sounds, soft, no peritoneal signs. Absent: distended, tenderness - Extremities Exam Extremities exam: Present: warm, radial pulses palpable and symmetrical. Absent: calf tenderness, cyanotic, pedal edema - Neurological Exam Neurological exam: Present: CN II-XII intact, oriented X3, no focal deficits. Absent: pronater drift, facial droop, speech deficit - Skin Skin exam: Present: dry, intact Internal Medicine: Result - Labs CBC & Chem 7: 02/24/18 04:30 02/24/18 04:30 - ABG Interpretation ABG results: ABG ABG pH 7.42 pH Units (7.32-7.45) 02/22/18 17:44 ABG pCO2 50 mmHg (35-45) H 02/22/18 17:44 ABG pO2 50 mmHg (85-104) L* 02/22/18 17:44 ABG O2 Saturation 85 % (95-98) L 02/22/18 17:44 PT/INR, D-dimer D-Dimer 806 ng/mLFEU (0-500) H 02/22/18 16:48 Consult Discharge Plan - Plan Referrals: Burt Vazquez, [facility] TECHNICIAN [Primary Care Provider] -
[2018-02-28] MEDS: MethylPREDNISolone 40 MG/ML VIAL IVP SCH (00:40)
[2018-02-28] MEDS: *HR* Enoxaparin 30 MG/0.3 ML SYRINGE SQ SCH (05:41)
[2018-02-28] MEDS: Nystatin SUSP 5 ML UD.LIQ PO SCH ×2 (10:12→14:01)
[2018-02-28] MEDS: amLODIPine 5 MG TABLET PO SCH (10:12)
[2018-02-28] MEDS: Famotidine 20 MG TABLET PO SCH (10:12)
[2018-02-28] MEDS: Iron Polysaccharide Complex 150 MG CAPSULE PO SCH (10:12)
[2018-02-28] MEDS: traMADol 50 MG TABLET PO PRN (10:13)
[2018-02-28] MEDS: Ascorbic Acid 500 MG TABLET PO SCH (10:13)
[2018-02-28] MEDS: cefTRIAXone 1,000 MG in Water for inj. (sterile) 20 ML 10 ML IVPB SCH ×2 (10:14→10:39)
[2018-02-28] MEDS: Metoprolol 100 MG TABLET PO SCH (10:14)
[2018-02-28] MEDS: Cholecalciferol (D-3) 1,000 UNIT TABLET PO SCH (10:15)
[2018-02-28] MEDS: (Cevimeline Hcl [Evoxac] 30 MG) PO SCH (10:19)
[2018-02-28 11:25] VITALS: BP 156/78
--- NOTE | 2018-02-28 12:13 | Discharge Summary ---
Addendum entered and electronically signed by Louie Negro MD 02/28/18 14:18: I have personally performed a face to face evaluation on this patient. I have r eviewed and agree with the care plan. History and Exam by me shows: Patient is feeling much better and wants to go home. She is not having much breathing problem, even with exertion. She has been relatively inactive. She has oxygen at home which she uses at 3 L but as needed, mostly at night. I recommended that she use her oxygen [id number] until seen by her primary care provider, within 1 week. I told her about her. Sensitive MRSA and that it is susceptible to Bactrim. For this reason, we will discharge her on a week of Bactrim as she is are ready been on several days of IV antibiotic. Discussed care with other providers and/or nursing. Patient has no complaint of chest discomfort, dyspnea, orthopnea, palpitations, nausea or vomiting, constipation or diarrhea, other changes in bowel habits, difficulty with urination, rash or itching, or other new complaints, except as mentioned above. Review of systems is otherwise negative. Examination: (Except as mentioned above): General: In no apparent distress. Alert and oriented 3. Nondiaphoretic. Head: Atraumatic and normocephalic. Respiratory: No use of accessory muscles. Lungs are clear throughout except for rare sonorous rhonchi. Normal airflow. Cardiovascular: Regular rate and rhythm without murmur appreciated. Abdomen: Bowel sounds are normal. No hepatosplenomegaly mass or tenderness appreciated. Obese and therefore difficult to palpate deeply. Extremities: No cyanosis clubbing or edema. Skin: Warm and non-diaphoretic with no new lesions noted. Original Note: Orders not resulted at time of discharge: Pending orders 03/01/18 04:00 BUN [Blood Urea Nitrogen (BUN)] AM 0400 Creatinine AM 0400 Vancomycin,Trough Timed Date of Encounter: 02/28/18 Time of Encounter: 12:10 - Discharge Diagnosis (1) Pneumonia Priority: Primary Status: Acute Comments: improved. Sputum culture positive for MR FLETCHER continue Bactrim DS PO BID for 7 days. follow up with Ray George, [facility]. Qualifiers: Pneumonia type: due to unspecified organism Laterality: right Lung location: middle lobe of lung Qualified Code(s): J18.1 - Lobar pneumonia, unspecified organism (2) Essential hypertension Priority: Secondary Status: Chronic Comments: Controlled with current medication. Monitor blood pressure. Follow up with PCP. (3) COPD (chronic obstructive pulmonary disease) Priority: Secondary Status: Chronic Comments: Controlled. Continue inhaled meds. Follow up with PCP. Qualifiers: COPD type: unspecified COPD Qualified Code(s): J44.9 - Chronic obstructive pulmonary disease, unspecified Hospital course: Ms. Miranda is a 77 year old female discharging to home after being admitted with PNA. sputum culture was positive for MRSA. will go home with Bactrim DS, 1 PO for 7 days. hx of COPD. instructed to follow up with Marco Antonio Vazquez NP. denies fever, chills, NVD. Discharge discussed with: patient, nurse - Time Spent with Patient Total time spent providing and/or coordinating discharge services: Less than 30 minutes - Discharge Medications Home Medications: Calcium Carbonate/Vitamin D3 [Calcium 600-Vit D3 800 Tablet] 1 each PO BID 12/22/14 [History] Cevimeline HCl [Evoxac] 30 mg PO TID 12/22/14 [History] Losartan [Cozaar] 50 mg PO DAILY 12/22/14 [History] TraMADol [Ultram] 100 mg PO Q6HR PRN 12/22/14 [History] Iron Ps Complex/B12/Folic Acid [Iferex 150 Forte Capsule] 1 each PO BID 06/30/16 [History] Metoprolol [Lopressor] 100 mg PO DAILY 10/11/17 [History] Buspirone HCl [Buspar] 7.5 mg PO BID 10/12/17 [History] Ranitidine HCl [Zantac] 300 mg PO DAILY 10/12/17 [History] amLODIPine [Norvasc] 10 mg PO DAILY 10/12/17 [History] Albuterol Neb [Proventil Neb] 2.5 mg IH [id number] PRN inhsol 10/17/17 [Rx] Docusate [Colace] 100 mg PO BID capsule 10/17/17 [Rx] Ipratropium/Albuterol Neb [Duoneb] 3 ml IH [id number] inhsol 10/17/17 [Rx] Ascorbic Acid [Vitamin C] 250 mg PO BID tablet 02/28/18 [Rx] Cholecalciferol (D-3) [Vitamin D] 1,000 unit PO DAILY tablet 02/28/18 [Rx] Polyethylene Glycol 3350 [MiraLAX] 17 gm PO DAILY powd.pack 02/28/18 [Rx] Sertraline [Zoloft] 50 mg PO DAILY tablet 02/28/18 [Rx] Allergies/Adverse Reactions: Allergy/AdvReac Type Severity Reaction Status Date / Time ciprofloxacin [From Cipro] Allergy Hallucinati Verified 02/22/18 16:04 ng Date of admission: 02/22/18 19:18 Primary care physician: Burt Vazquez CNP Discharging clinician: Louie Negro Anticipated date of discharge: 02/28/18 - Constitutional Vitals: Temp Pulse Resp BP Pulse Ox 98.4 F 84 16 156/78 94 02/28/18 11:23 02/28/18 11:23 02/28/18 11:23 02/28/18 11:23 02/28/18 11:23 General appearance: Present: A&O X 3, pleasant - Head Head exam: Present: atraumatic, normocephalic - Eye Eye exam: Present: PERRL, conjuntiva pink, sclera anicteric Pupils: Present: PERRL - Neck Neck exam general surgery: Present: supple, trachea midline. Absent: lymphadenopathy - Respiratory Respiratory exam: Present: CTAB. Absent: accessory muscle use, rales, rhonchi, wheezes - Cardiovascular Cardiovascular exam: Present: RRR, +S1, +S2. Absent: diastolic murmur, gallop, rubs, systolic murmur - GI/Abdominal GI/Abdominal exam: Present: normal bowel sounds, soft, no peritoneal signs. Absent: distended, tenderness - Extremities Exam Extremities exam: Present: warm, radial pulses palpable and symmetrical. Absent: calf tenderness, cyanotic, pedal edema - Neurological Exam Neurological exam: Present: CN II-XII intact, oriented X3, no focal deficits. Absent: pronater drift, facial droop, speech deficit - Skin Skin exam: Present: dry, intact - Patient Status Disposition: Home, Self-Care Condition: Good Functional capacity at discharge: uses cane/walker Overall status at discharge: patient is progressing back to baseline - Discharge Instructions Follow Up With: Burt Vazquez CNP [Primary Care Provider] - - Diet and Activity Activity: increase activity as tolerated Diet: advance to your usual diet
[2018-02-28] MEDS ORDERED: Aminoglycoside Consult 1 EACH MC ONE (15:44)
== END 2018-02-28 15:45 | disposition home or self-care (01) | DRG 178 ==
LOC: EMEROOGRE 15:51 → INPGRE 19:18